=== PATIENT | female | born 1990 | race Caucasian/White ===

== ENCOUNTER → 2017-04-23 | Outpatient (CLI) | payer OTHER ==
[2017-04-23 12:18] LABS: Ionized Calcium 4.9 mg/dL (4.5-5.3)
[2017-04-26 17:56] LABS: Selenium 129 mcg/L (63-160)
== END | disposition home or self-care (01) ==
LOC: LABWHC1 11:23
PROVIDERS: ATTEND Surgery Pediatric Surgery
DX: K92.89 Other specified diseases of the digestive system (principal)
CPT/HCPCS: 36415; 82306; 82330; 82728; 83540; 83970; 84255; 84590

== ENCOUNTER → 2017-11-19 | Outpatient (CLI) | payer BC ==
[2017-11-20 00:31] LABS: Parathyroid Hormone Intact 97.4 pg/mL (14.0-72.0)
[2017-11-20 02:47] LABS: Vitamin D 25 Hydroxy 8.1 ng/mL (30.0-100.0)
[2017-11-20 11:43] LABS: Ceruloplasmin 54.9 mg/dL (20.0-60.0)
[2017-11-21 15:07] LABS: Zinc, Serum 99 ug/dL (60-130)
[2017-11-22 13:07] LABS: Vitamin A 54 ug/dL (38-106)
[2017-11-22 13:08] LABS: Vitamin E (Alpha Tocopherol) 628 ug/dL (500-1800)
[2017-11-24 23:18] LABS: Selenium 124 mcg/L (63-160)
== END | disposition home or self-care (01) ==
LOC: LABWHC1 17:07
PROVIDERS: ATTEND Surgery Pediatric Surgery
DX: K92.89 Other specified diseases of the digestive system (principal); K90.49 Malabsorption due to intolerance, not elsewhere classified; Z78.9 Other specified health status
CPT/HCPCS: 36415; 82306; 82330; 82390; 82525; 83970; 84255; 84446; 84590; 84630

== ENCOUNTER → 2018-02-26 | Outpatient (CLI) | payer BC ==
[2018-02-27 01:56] LABS: Vitamin D 25 Hydroxy 39.3 ng/mL (30.0-100.0)
[2018-02-27 02:28] LABS: Parathyroid Hormone Intact 42.7 pg/mL (14.0-72.0)
[2018-02-27 11:56] LABS: Ceruloplasmin 46.1 mg/dL (20.0-60.0)
[2018-02-28 05:31] LABS: Vitamin A 72 ug/dL (38-106)
== END | disposition home or self-care (01) ==
LOC: LABWHC1 16:17
PROVIDERS: ATTEND Surgery Pediatric Surgery
DX: K91.2 Postsurgical malabsorption, not elsewhere classified (principal); Z78.9 Other specified health status
CPT/HCPCS: 36415; 82306; 82390; 82525; 82728; 83970; 84238; 84590

== ENCOUNTER → 2018-06-07 | Outpatient (CLI) | payer BC ==
[2018-06-08 02:13] LABS: Iron Saturation 23.04 (12.00-45.00)
[2018-06-08 11:16] LABS: Parathyroid Hormone Intact 49.9 pg/mL (14.0-72.0)
[2018-06-08 12:32] LABS: Ceruloplasmin 28.5 mg/dL (20.0-60.0)
[2018-06-10 12:48] LABS: Zinc, Serum 76 ug/dL (60-130)
== END ==
LOC: LABWHC1 16:18
PROVIDERS: ATTEND Surgery Pediatric Surgery
DX: K91.2 Postsurgical malabsorption, not elsewhere classified (principal)
CPT/HCPCS: 36415; 82390; 82525; 82728; 83540; 83550; 83970; 84255; 84446; 84590; 84630; 86140

== ENCOUNTER → 2018-07-13 | Outpatient (CLI) | payer BC ==
[2018-07-13 22:52] LABS: Vitamin D 25 Hydroxy 83.2 ng/mL (30.0-100.0)
== END | disposition home or self-care (01) ==
LOC: LABWHC1 11:23
PROVIDERS: ATTEND Surgery Pediatric Surgery
DX: K92.89 Other specified diseases of the digestive system (principal)
CPT/HCPCS: 36415; 82306; 83970

== ENCOUNTER 2018-09-23 09:29 | Emergency (ER) | payer BC, OTHER ==
[2018-09-23 09:34] VITALS: BP 99/65; PULSE 72; RESP 18; TEMP 98.5
--- NOTE | 2018-09-23 10:01 | ED ---
General Adult HPI - General Chief complaint: Recheck/Abnormal Lab/Rx Stated complaint: positive TB test/needs chest xray Time Seen by Provider: 09/23/18 09:42 Source: patient, RN notes reviewed Mode of arrival: ambulatory Limitations: no limitations - History of Present Illness Initial comments: Patient is a pleasant 28-year-old female presenting to the emergency department with concern for possible positive TB test. Patient had test done through [facility]. Patient states there was questionable results and was advised to come to the emergency department for chest x-ray. Patient denies having any symptoms. Patient denies any recent travel or known exposure. No cough. No fevers. No hemoptysis. - Related Data Home Medications Medication Instructions Recorded Confirmed Cholecalciferol (Vitamin D3) 8,000 unit PO BID 08/14/17 08/14/17 [Vitamin D3] Cipro (Unknown Dose) 1 tab PO DAILY 08/14/17 08/14/17 Diphenox-Atrop 2.5-0.025 mg 1 tab PO QID PRN 08/14/17 08/14/17 [Lomotil] Enskyce 1 tab PO DAILY 08/14/17 08/14/17 Vitamin A 25,000 units PO HS 08/14/17 08/14/17 Vitamin A 50,000 units PO DAILY 08/14/17 08/14/17 Vitamin E (Dl,Tocopheryl Acet) 400 unit PO DAILY 08/14/17 08/14/17 [Vitamin E] Allergies Allergy/AdvReac Type Severity Reaction Status Date / Time Cephalosporins Allergy Nausea Verified 09/23/18 09:57 heparin Allergy Rapid Verified 09/23/18 09:57 Heart Rate latex Allergy Rash/Hives Verified 09/23/18 09:57 Review of Systems ROS Statement: Those systems with pertinent positive or pertinent negative responses have been documented in the HPI. ROS Other: All systems not noted in ROS Statement are negative. Constitutional: Denies: fever, chills, weakness, weight change, night sweats Eyes: Denies: eye pain ENT: Denies: ear pain Respiratory: Denies: cough, dyspnea, hemoptysis Cardiovascular: Denies: chest pain Endocrine: Denies: fatigue Gastrointestinal: Denies: abdominal pain Genitourinary: Denies: dysuria Musculoskeletal: Denies: back pain Skin: Denies: rash Neurological: Denies: weakness Past Medical History Additional Past Medical History / Comment(s): Hurshbrungs disease, illostomy History of Any Multi-Drug Resistant Organisms: None Reported Past Surgical History: Bowel Resection Past Psychological History: No Psychological Hx Reported Smoking Status: Never smoker Past Alcohol Use History: None Reported Past Drug Use History: None Reported General Exam Limitations: no limitations General appearance: alert, in no apparent distress Head exam: Present: atraumatic Eye exam: Present: normal appearance, PERRL ENT exam: Present: normal oropharynx Neck exam: Present: normal inspection Respiratory exam: Present: normal lung sounds bilaterally. Absent: respiratory distress, wheezes, rales, rhonchi, stridor, decreased breath sounds, prolonged expiratory Cardiovascular Exam: Present: regular rate, normal rhythm Extremities exam: Present: other (Bilateral forearms with area of minimal subcutaneous fullness. There is no significant erythema or raised area. There is no definitive border.) Neurological exam: Present: alert Psychiatric exam: Present: normal affect, normal mood Skin exam: Absent: erythema Course Vital Signs 09/23/18 09:31 Temperature 98.5 F Pulse Rate 72 Respiratory 18 Rate Blood Pressure 99/65 O2 Sat by Pulse 99 Oximetry - Reevaluation(s) Reevaluation #1: 09/23/18 10:03 Patient is not clear why they felt that test was positive. Patient would does not to have a chest x-ray. Employee nurse Tiara Triana did also come down and evaluate the site and feels it is negative. Disposition Clinical Impression: Visit for TB skin test Disposition: HOME SELF-CARE Condition: Stable Additional Instructions: TB skin test is read as negative. You may return to work. Please return for fevers, cough, coughing up blood, shortness of breath, worsening or changing symptoms or other concerns. Is patient prescribed a controlled substance at d/c from ED?: No Referrals: Tera Vasquez MD [Primary Care Provider] - 1-2 days Time of Disposition: 10:08
== END 2018-09-23 10:28 | disposition home or self-care (01) ==
LOC: EC 09:29
DX: Z11.1 Encounter for screening for respiratory tuberculosis (principal); Z79.3 Long term (current) use of hormonal contraceptives; Z88.1 Allergy status to other antibiotic agents; Z88.8 Allergy status to other drugs, medicaments and biological substances; Z91.040 Latex allergy status
CPT/HCPCS: 99282

== ENCOUNTER → 2018-11-23 | Outpatient (CLI) | payer OTHER ==
[2018-11-23 16:36] LABS: Iron Saturation 25.66 (12.00-45.00)
== END | disposition home or self-care (01) ==
LOC: LABWHC1 09:17
PROVIDERS: ATTEND Internal Medicine Gastroenterology
DX: D50.8 Other iron deficiency anemias (principal)
CPT/HCPCS: 36415; 83540; 83550

== ENCOUNTER → 2020-04-21 | Outpatient (CLI) | payer BC ==
[2020-04-21 19:33] LABS: % Iron Saturation 14.85 (12.00-45.00); Folate, Serum 19.1 ng/mL
[2020-04-22 14:08] LABS: Zinc, Serum 95 ug/dL (60-130)
[2020-04-23 05:44] LABS: Vitamin A 33 ug/dL (38-106)
== END | disposition home or self-care (01) ==
LOC: LABWHC1 11:23
PROVIDERS: ATTEND Internal Medicine Gastroenterology
DX: K59.8 Other specified functional intestinal disorders (principal)
CPT/HCPCS: 36415; 82180; 82306; 82525; 82607; 82746; 83540; 83550; 84207; 84255; 84590; 84630

== ENCOUNTER → 2020-08-18 | Outpatient (CLI) | payer BC | END | disposition home or self-care (01) | LOC: LABWHC1 16:49 | PROVIDERS: ATTEND Family Medicine | DX: U07.1 COVID-19 (principal) | CPT/HCPCS: U0003; C9803 ==

== ENCOUNTER → 2020-08-20 | Outpatient (CLI) | payer BC ==
[2020-08-21 02:57] LABS: % Iron Saturation 24.74 (12.00-45.00); Ferritin 901.2 ng/mL (10.0-291.0)
== END | disposition home or self-care (01) ==
LOC: LABWHC1 14:30
PROVIDERS: ATTEND Internal Medicine Gastroenterology
DX: D50.9 Iron deficiency anemia, unspecified (principal)
CPT/HCPCS: 36415; 82728; 83540; 83550

== ENCOUNTER → 2020-11-10 | Outpatient (CLI) | payer BC | END | disposition home or self-care (01) | LOC: LABWHC1 13:00 | PROVIDERS: ATTEND Family Medicine | DX: Z20.822 Contact with and (suspected) exposure to COVID-19 (principal) | CPT/HCPCS: U0003; U0005 ==

== ENCOUNTER 2020-11-12 12:25 | Outpatient (CLI) | payer BC ==
--- NOTE | 2020-11-12 12:57 | XR ---
EXAMINATION TYPE: XR chest 2V DATE OF EXAM: 11/12/2020 COMPARISON: Chest x-ray August 22, 1999. HISTORY: Cough and fever. History of Hirschsprung disease. TECHNIQUE: Frontal and lateral views of the chest are obtained. 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 There is no new suspicious focal air space opacity, pleural effusion, or pneumoth orax seen. The cardiac silhouette size remains within normal limits. The osseous structures are in tact. Prominent gas-filled bowel loops in the upper abdomen with air-fluid levels redemonstrated IMPRESSION: No new suspicious acute pulmonary process.
[2020-11-12 15:10] LABS: ALT 357 U/L (4-34); AST 187 U/L (14-36); African American GFR (CKD) >90 (>60 ml/min/1.73 sqM); Albumin/Globulin Ratio 1.1; Alkaline Phosphatase 246 U/L (38-126); Anion Gap 5 mmol/L; Blood Urea Nitrogen 20 mg/dL (7-17); C Reactive Protein 11.9 mg/L (<10.0); Calcium 8.3 mg/dL (8.4-10.2); Carbon Dioxide 32 mmol/L (22-30); Chloride 99 mmol/L (98-107); Globulin 2.7 g/dL; Glucose 98 mg/dL (74-99); Non-African American GFR(CKD) >90 (>60 ml/min/1.73 sqM); Potassium 4.9 mmol/L (3.5-5.1); Sodium 136 mmol/L (137-145); Total Bilirubin 0.4 mg/dL (0.2-1.3); Total Protein 5.7 g/dL (6.3-8.2)
[2020-11-12 15:49] LABS: Cholesterol 106 mg/dL (<200); HDL Cholesterol 13 mg/dL (40-60); LDL Cholesterol,Calculated 72 mg/dL (0-99); Triglycerides 104 mg/dL (<150)
[2020-11-12 16:02] LABS: Basophils % (A) 0 %; Eosinophils # (A) 0.1 k/uL (0-0.7); Eosinophils % (A) 2 %; HCT 34.3 % (34.0-46.0); HGB 11.6 gm/dL (11.4-16.0); Lymphocytes # (A) 0.9 k/uL (1.0-4.8); Lymphocytes % (A) 22 %; MCHC 33.9 g/dL (31.0-37.0); MCV 91.5 fL (80.0-100.0); Mean Platelet Volume 8.5; Monocytes # (A) 0.3 k/uL (0-1.0); Monocytes % (A) 9 %; Neutrophils # (A) 2.6 k/uL (1.3-7.7); Neutrophils % (A) 66 %; Platelet Count 261 k/uL (150-450); RBC 3.75 m/uL (3.80-5.40); RDW 13.2 % (11.5-15.5)
[2020-11-12 16:37] LABS: Erythrocyte Sedimentation Rate 15 mm/hr (0-20)
[2020-11-13 03:40] LABS: Hepatitis C IgG Antibody Non-Reactive (Non-Reactive); Procalcitonin 0.27 ng/mL (0.02-0.09)
== END 2020-11-12 14:20 | disposition home or self-care (01) ==
LOC: LABWHC1 12:25 → PEDOP 14:20
PROVIDERS: ATTEND Nurse Practitioner
DX: R05 Cough (principal); R50.9 Fever, unspecified
CPT/HCPCS: 36415; 71046; 80053; 80061; 84145; 84443; 85025; 85652; 86140; 86803; 87040; 87077; 87186; 99212

== ENCOUNTER 2020-11-13 11:17 | Inpatient (IN) | payer BC ==
[2020-11-13 12:35] LABS: Basophils % (A) 0 %; Eosinophils # (A) 0.1 k/uL (0-0.7); Eosinophils % (A) 2 %; HCT 34.6 % (34.0-46.0); HGB 11.2 gm/dL (11.4-16.0); Lymphocytes % (A) 25 %; MCH 29.7 pg (25.0-35.0); MCHC 32.5 g/dL (31.0-37.0); MCV 91.4 fL (80.0-100.0); Mean Platelet Volume 8.2; Monocytes # (A) 0.3 k/uL (0-1.0); Monocytes % (A) 8 %; Neutrophils # (A) 2.5 k/uL (1.3-7.7); Neutrophils % (A) 61 %; Platelet Count 277 k/uL (150-450); RBC 3.79 m/uL (3.80-5.40); RDW 13.3 % (11.5-15.5)
[2020-11-13 12:44] LABS: ALT 287 U/L (4-34); AST 118 U/L (14-36); African American GFR (CKD) >90 (>60 ml/min/1.73 sqM); Alkaline Phosphatase 224 U/L (38-126); Anion Gap 6 mmol/L; Blood Urea Nitrogen 18 mg/dL (7-17); Calcium 8.1 mg/dL (8.4-10.2); Carbon Dioxide 29 mmol/L (22-30); Chloride 102 mmol/L (98-107); Glucose 96 mg/dL (74-99); Non-African American GFR(CKD) >90 (>60 ml/min/1.73 sqM); Potassium 4.6 mmol/L (3.5-5.1); Sodium 137 mmol/L (137-145); Total Bilirubin 0.4 mg/dL (0.2-1.3); Total Protein 5.7 g/dL (6.3-8.2)
[2020-11-13] MEDS ORDERED: SODIUM CHLORIDE 0.9% 500 ML 500 ML IV ONE (12:53)
[2020-11-13] MEDS ORDERED: SODIUM CHLORIDE 0.9% 1,000 ML IV ONE (12:53)
[2020-11-13] MEDS ORDERED: PIPERACILLIN-TAZOBACTAM 3.375 GM in SODIUM CHLORIDE 0.9% 100 ML IVPB STA (12:53)
--- NOTE | 2020-11-13 13:04 | ED ---
Fever HPI - General Chief Complaint: Fever Stated Complaint: abn labs Time Seen by Provider: 11/13/20 11:32 Source: patient Mode of arrival: ambulatory Limitations: no limitations - History of Present Illness Initial Comments: 22-year-old female presenting for fevers 3-4 days. Patient states the past 3-4 days she has had fevers the unknown of the sore she states she has no cough congestion she's no dysuria or urgency frequency she denies any bowel pain headache and neck stiffness. Patient denies diarrhea or vomiting. Patient states she does have a history of Hirschsprung and has a Broviac in her chest for TPN. Patient states she sees the GI physician at [facility]-DR. Mcpherson. She states that she saw her primary care provider 2 days ago who did blood cultures off the Broviac which returned positive for gram positive cocci. Patient placed on levoquin.Patient told to come to the ER today. Patient has no additional complaints and believes she just needs IV abx, prefers not to be transferred to [facility] if possible. - Related Data Home Medications Medication Instructions Recorded Confirmed Cholecalciferol (Vitamin D3) 10,000 unit PO DAILY 09/23/18 11/13/20 [Vitamin D3] Ciprofloxacin HCl [Cipro] 500 mg PO BID 09/23/18 11/13/20 Levofloxacin [Levaquin] 750 mg PO DAILY 11/13/20 11/13/20 Vitamin A Acetate [Vitamin A] 10,000 unit SL DAILY 11/13/20 11/13/20 Allergies Allergy/AdvReac Type Severity Reaction Status Date / Time Cephalosporins Allergy Nausea Verified 11/13/20 12:17 heparin Allergy Rapid Verified 11/13/20 12:17 Heart Rate latex Allergy Rash/Hives Verified 11/13/20 12:17 Review of Systems ROS Statement: Those systems with pertinent positive or pertinent negative responses have been documented in the HPI. ROS Other: All systems not noted in ROS Statement are negative. Past Medical History Additional Past Medical History / Comment(s): hirschsprung's disease, broviac for supplemental nutrition (2020) History of Any Multi-Drug Resistant Organisms: None Reported Past Surgical History: Bowel Resection Additional Past Surgical History / Comment(s): ileuostomy, Past Psychological History: No Psychological Hx Reported Smoking Status: Never smoker Past Alcohol Use History: None Reported Past Drug Use History: None Reported - Past Family History Father Family Medical History: No Reported History Mother Family Medical History: No Reported History General Exam - General Exam Comments Initial Comments: General: The patient is awake and alert, in no distress Eye: Pupils are equal, round and reactive to light, extra-ocular movements are intact. No nystagmus. There is normal conjunctiva bilaterally. No signs of icterus. Ears, nose, mouth and throat: There are moist mucous membranes and no oral lesions. Neck: The neck is supple, there is no tenderness or JVD. Cardiovascular: There is a regular rate and rhythm. No murmur, rub or gallop is appreciated. Respiratory: Lungs are clear to auscultation, respirations are non-labored, breath sounds are equal. No wheezes, stridor, rales, or rhonchi. Gastrointestinal: Soft, non-distended, non-tender abdomen without masses or organomegaly noted. There is no rebound or guarding present. Musculoskeletal: Normal ROM, no tenderness. Strength 5/5. Sensation intact. Radial pulses equal bilaterally 2+. Neurological: A&O x 3. CN II-XII intact grossly, There are no obvious motor or sensory deficits. Coordination appears grossly intact. Speech is normal. Skin: Skin is warm and dry and no rashes or lesions are noted. Broviac in center of chest, no redness, or drainage appreciated. Psychiatric: Cooperative, appropriate mood & affect, normal judgment. Limitations: no limitations Course Vital Signs 11/13/20 11/13/20 11:24 14:01 Temperature 98.9 F 98.6 F Pulse Rate 88 77 Respiratory 18 18 Rate Blood Pressure 100/6 98/62 O2 Sat by Pulse 100 100 Oximetry Medical Decision Making - Medical Decision Making Anemia noted on laboratory studies. Otherwise labs stable. Previous culture reviewed. Pt initiated on broad spectrum as well as gram + coverage with vancomycin. Patient has had multiple previous broviak infection which she usses the line for nightly feedings secondary to malabsorption secondary to his Hirschsprung disease. Patient prefers admission at this facility. Case discussed [facility] Yuko Gaffney who took over care at end of shift. - Lab Data Result diagrams: 11/14/20 06:24 11/14/20 06:24 Lab Results 03/02/2811/13/20 11/13/20 Range/Units 12:27 12:27 12:27 WBC 4.0 (3.8-10.6) k/uL RBC 3.79 L (3.80-5.40) m/uL Hgb 11.2 L (11.4-16.0) gm/dL Hct 34.6 (34.0-46.0) % MCV 91.4 (80.0-100.0) fL MCH 29.7 (25.0-35.0) pg MCHC 32.5 (31.0-37.0) g/dL RDW 13.3 (11.5-15.5) % Plt Count 277 (150-450) k/uL MPV 8.2 Neutrophils % 61 % Lymphocytes % 25 % Monocytes % 8 % Eosinophils % 2 % Basophils % 0 % Neutrophils # 2.5 (1.3-7.7) k/uL Lymphocytes # 1.0 (1.0-4.8) k/uL Monocytes # 0.3 (0-1.0) k/uL Eosinophils # 0.1 (0-0.7) k/uL Basophils # 0.0 (0-0.2) k/uL Sodium 137 (137-145) mmol/L Potassium 4.6 (3.5-5.1) mmol/L Chloride 102 (98-107) mmol/L Carbon Dioxide 29 (22-30) mmol/L Anion Gap 6 mmol/L BUN 18 H (7-17) mg/dL Creatinine 0.49 L (0.52-1.04) mg/dL Est GFR (CKD-EPI)AfAm >90 (>60 ml/min/1.73 sqM) Est GFR (CKD-EPI)NonAf >90 (>60 ml/min/1.73 sqM) Glucose 96 (74-99) mg/dL Plasma Lactic Acid Mu (0.7-2.0) mmol/L Calcium 8.1 L (8.4-10.2) mg/dL Total Bilirubin 0.4 (0.2-1.3) mg/dL AST 118 H (14-36) U/L ALT 287 H (4-34) U/L Alkaline Phosphatase 224 H (38-126) U/L Total Protein 5.7 L (6.3-8.2) g/dL Albumin 3.0 L (3.5-5.0) g/dL Urine Color Yellow Urine Appearance Clear (Clear) Urine pH 6.0 (5.0-8.0) Ur Specific [place] 1.028 (1.001-1.035) Urine Protein 1+ H (Negative) Urine Glucose (UA) Negative (Negative) Urine Ketones Negative (Negative) Urine Blood Small H (Negative) Urine Nitrite Negative (Negative) Urine Bilirubin Negative (Negative) Urine Urobilinogen <2.0 (<2.0) mg/dL Ur Leukocyte Esterase Negative (Negative) Urine RBC <1 (0-5) /hpf Urine WBC 2 (0-5) /hpf Ur Squamous Epith Cells 1 (0-4) /hpf Urine Bacteria Rare H (None) /hpf Urine Mucus Rare H (None) /hpf Urine HCG, Qual (Not Detectd) Coronavirus (PCR) (Not Detectd) 11/13/20 11/13/20 11/13/20 Range/Units 12:27 12:27 13:35 WBC (3.8-10.6) k/uL RBC (3.80-5.40) m/uL Hgb (11.4-16.0) gm/dL Hct (34.0-46.0) % MCV (80.0-100.0) fL MCH (25.0-35.0) pg MCHC (31.0-37.0) g/dL RDW (11.5-15.5) % Plt Count (150-450) k/uL MPV Neutrophils % % Lymphocytes % % Monocytes % % Eosinophils % % Basophils % % Neutrophils # (1.3-7.7) k/uL Lymphocytes # (1.0-4.8) k/uL Monocytes # (0-1.0) k/uL Eosinophils # (0-0.7) k/uL Basophils # (0-0.2) k/uL Sodium (137-145) mmol/L Potassium (3.5-5.1) mmol/L Chloride (98-107) mmol/L Carbon Dioxide (22-30) mmol/L Anion Gap mmol/L BUN (7-17) mg/dL Creatinine (0.52-1.04) mg/dL Est GFR (CKD-EPI)AfAm (>60 ml/min/1.73 sqM) Est GFR (CKD-EPI)NonAf (>60 ml/min/1.73 sqM) Glucose (74-99) mg/dL Plasma Lactic Acid Mu 0.9 (0.7-2.0) mmol/L Calcium (8.4-10.2) mg/dL Total Bilirubin (0.2-1.3) mg/dL AST (14-36) U/L ALT (4-34) U/L Alkaline Phosphatase (38-126) U/L Total Protein (6.3-8.2) g/dL Albumin (3.5-5.0) g/dL Urine Color Urine Appearance (Clear) Urine pH (5.0-8.0) Ur Specific [place] (1.001-1.035) Urine Protein (Negative) Urine Glucose (UA) (Negative) Urine Ketones (Negative) Urine Blood (Negative) Urine Nitrite (Negative) Urine Bilirubin (Negative) Urine Urobilinogen (<2.0) mg/dL Ur Leukocyte Esterase (Negative) Urine RBC (0-5) /hpf Urine WBC (0-5) /hpf Ur Squamous Epith Cells (0-4) /hpf Urine Bacteria (None) /hpf Urine Mucus (None) /hpf Urine HCG, Qual Not Detected (Not Detectd) Coronavirus (PCR) Not Detected (Not Detectd) Disposition Clinical Impression: FUO (fever of unknown origin), Positive blood culture Disposition: ADMITTED IP TO THIS [facility] Condition: Stable Is patient prescribed a controlled substance at d/c from ED?: No Time of Disposition: 14:03 Decision to Admit Reason: Admit from EC Decision Date: 11/13/20 Decision Time: 14:03
[2020-11-13] MEDS ORDERED: VANCOMYCIN IV PER PHARMACY 1 EACH MISC MISCELLANE PRN (13:59)
[2020-11-13] MEDS ORDERED: NALOXONE 0.4 MG/ML 1 ML VIAL IV PRN (14:00)
[2020-11-13] MEDS ORDERED: VANCOMYCIN 1,000 MG in SODIUM CHLORIDE 0.9% 250 ML IVPB ONE (14:30)
[2020-11-13] MEDS: SODIUM CHLORIDE 0.9% 1,000 ML IV SCH (14:39)
[2020-11-13 14:55] LABS: Appearance,Urine Clear (Clear); Bacteria,Urine Rare /hpf; Bilirubin,Urine Negative (Negative); Blood,Urine Small (Negative); Color,Urine Yellow; Glucose,Urine (UA) Negative (Negative); Ketones,Urine Negative (Negative); Leukocyte Esterase,Urine Negative (Negative); Mucus,Urine Rare /hpf; Nitrite,Urine Negative (Negative); Protein,Urine 1+ (Negative); RBC,Urine <1 /hpf (0-5); Specific Gravity,Urine 1.028 (1.001-1.035); Squamous Epithelial Cell,Urine 1 /hpf (0-4); Urobilinogen,Urine <2.0 mg/dL (<2.0); WBC,Urine 2 /hpf (0-5)
[2020-11-13] MEDS ORDERED: Magnesium Replacement Protocol 1 EACH MISC MISCELLANE PRN (19:11)
[2020-11-13] MEDS ORDERED: Potassium Replacement Protocol 1 EACH MISC MISCELLANE PRN (19:11)
[2020-11-13] MEDS: PIPERACILLIN-TAZOBACTAM 3.375 GM in SODIUM CHLORIDE 0.9% 100 ML IVPB SCH (19:27)
--- NOTE | 2020-11-13 20:43 | HP ---
HISTORY AND PHYSICAL CHIEF COMPLAINT: Fever. HISTORY OF PRESENT ILLNESS: This 30-year-old woman with a past medical history of Hirschsprung's disease with multiple surgeries, history of bowel resection, history of short-gut syndrome, being followed by Dr. Tear Vasquez in the outpatient setting, the patient is also seeing specialist elsewhere in [facility]. The patient had a Broviac catheter since last several years ago. The patient takes supplement nutrition at night in the form of TPN. The patient noted to have fever, rigors and chills for the last few days. The patient initially had a Covid testing that was negative, but repeated test was also negative and the patient was evaluated in the office. The patient had some cultures. Patient empirically treated with antibiotics. The multiple culture reports done on 11/11/2020 is coagulase-negative Staph and one more culture done on November 12, also growing gram-positive cocci. The patient admitted for evaluation and treatment. Infectious disease evaluation also has been sought. There is no history any headache, loss of consciousness, chest pain, palpitation, hematochezia and melena. PAST MEDICAL HISTORY: History of Hirschsprung's disease, Broviac catheter, history of bowel resection, ileostomy. MEDICATIONS: Vitamin A, Levaquin, Cipro, vitamin D3. Doses are reviewed. ALLERGIES: CEPHALOSPORIN, HEPARIN, LATEX. FAMILY HISTORY: No history of heart disease or strokes in the family. SOCIAL HISTORY: History of occasional alcohol. No history of smoking. No substance abuse. REVIEW OF SYSTEMS: ENT: No diminished hearing. No diminished vision. CARDIOVASCULAR system as mentioned earlier. RESPIRATION as mentioned earlier. GI: No nausea. : No dysuria. NERVOUS SYSTEM: No numbness or weakness. ALLERGY/IMMUNOLOGY: No asthma or hayfever. MUSCULOSKELETAL as mentioned earlier. HEMATOLOGY/ONCOLOGY: No history of anemia. ENDOCRINE: No history of diabetes mellitus or hypothyroidism. DERMATOLOGY: Negative. CONSTITUTIONAL: As mentioned earlier. RHEUMATOLOGY: Negative. PSYCHIATRY as mentioned earlier. PHYSICAL EXAMINATION: Alert and oriented times three. Pulse 71, blood pressure 92/59, respiration 18, temperature 98.2, pulse ox 97% on room air. HEENT: Conjunctivae normal. Oral mucosa moist. NECK is no jugular venous distention. No carotid bruit. No lymph node enlargement. CARDIOVASCULAR system: S1, S2. No S3, no S4. RESPIRATORY: Breath sounds diminished in the bases. No rhonchi. No crackles. ABDOMEN: Soft, nontender. Ileostomy. LEGS: No edema. No swelling. NERVOUS SYSTEM: No focal deficits. LABS: WBC 4, hemoglobin 11.2. Otherwise AST is 118, ALT is 287, alkaline phosphatase is 224. ASSESSMENT: 1. Possible sepsis with coagulase-negative Staph. 2. Status post Broviac catheter. 3. Hirschsprung's disease history. 4. On TPN. 5. History of bowel resection. 6. History of ileostomy. 7. Anemia, normocytic anemia of chronic disease. 8. Increased AST/ALT and alkaline phosphatase. 9. Hypoalbuminemia with mild protein calorie malnutrition. RECOMMENDATIONS AND DISCUSSION: In this 30-year-old woman who presented with multiple complex medical issues, we will monitor the patient closely, continue the current medications, management and symptomatic treatment. We will initiate broad-spectrum IV antibiotics. Obtain repeat cultures. Infectious disease evaluation. Also recommend repeat LFTs and also ultrasound of the abdomen. Prognosis guarded because of multiple complex medical issues. A copy of dictation being forwarded to Dr. Tera Vasquez who is the primary physician. MMODL / IJN: [id number] /
[2020-11-13 20:44] LABS: D-Dimer 0.66 mg/L FEU (<0.60); INR 1.1 (<1.2); Prothrombin Time 11.7 sec (9.0-12.0)
[2020-11-13 21:30] LABS: LDH 1105 U/L (313-618)
[2020-11-13 21:57] LABS: C Reactive Protein <5.0 mg/L (<10.0)
[2020-11-14] MEDS: VANCOMYCIN 1,000 MG in SODIUM CHLORIDE 0.9% 250 ML IVPB SCH ×3 (00:15→16:00)
[2020-11-14] MEDS: PIPERACILLIN-TAZOBACTAM 3.375 GM in SODIUM CHLORIDE 0.9% 100 ML IVPB SCH ×2 (01:37→10:00)
[2020-11-14] MEDS: SODIUM CHLORIDE 0.9% 1,000 ML IV SCH ×4 (01:38→15:58)
[2020-11-14 06:41] LABS: Basophils % (A) 1 %; Eosinophils # (A) 0.1 k/uL (0-0.7); Eosinophils % (A) 4 %; HCT 32.6 % (34.0-46.0); HGB 10.5 gm/dL (11.4-16.0); Lymphocytes # (A) 0.6 k/uL (1.0-4.8); Lymphocytes % (A) 16 %; MCH 29.9 pg (25.0-35.0); MCHC 32.2 g/dL (31.0-37.0); MCV 92.9 fL (80.0-100.0); Mean Platelet Volume 8.5; Monocytes # (A) 0.4 k/uL (0-1.0); Monocytes % (A) 10 %; Neutrophils # (A) 2.6 k/uL (1.3-7.7); Neutrophils % (A) 67 %; Platelet Count 246 k/uL (150-450); RBC 3.51 m/uL (3.80-5.40); RDW 13.3 % (11.5-15.5); WBC 3.9 k/uL (3.8-10.6)
[2020-11-14 07:05] LABS: ALT 246 U/L (4-34); AST 127 U/L (14-36); African American GFR (CKD) >90 (>60 ml/min/1.73 sqM); Albumin 2.5 g/dL (3.5-5.0); Alkaline Phosphatase 204 U/L (38-126); Anion Gap 1 mmol/L; Blood Urea Nitrogen 14 mg/dL (7-17); Calcium 7.9 mg/dL (8.4-10.2); Carbon Dioxide 32 mmol/L (22-30); Chloride 107 mmol/L (98-107); Glucose 92 mg/dL (74-99); Magnesium 1.9 mg/dL (1.6-2.3); Non-African American GFR(CKD) >90 (>60 ml/min/1.73 sqM); Potassium 3.7 mmol/L (3.5-5.1); Sodium 140 mmol/L (137-145); Total Bilirubin 0.4 mg/dL (0.2-1.3)
[2020-11-14] MEDS ORDERED: POTASSIUM CHLORIDE ER 20 MEQ TAB.ER PO STA (07:40)
--- NOTE | 2020-11-14 08:50 | US ---
EXAMINATION TYPE: US gallbladder DATE OF EXAM: 11/14/2020 COMPARISON: NONE CLINICAL HISTORY: high lft. . Patient has Hirschsprung's disease. Patient has a Broviac central line. EXAM MEASUREMENTS: Liver Length: 14.6 cm Gallbladder Wall: 0.4 cm CBD: 0.3 cm Right Kidney: 9.6 x 4.8 x 5.6 cm Patient has had extensive surgical history. Exam is technically difficult due to extensive midline isabella wel gas and swirling debris presumed to be from supplemental nutrition through Broviac. Pancreas: Obscured by bowel gas Liver: Liver echotexture is somewhat coarse, no evident mass Gallbladder: appears contracted, no stones seen. Only seen when patient is supine due to extensive s wirling noted midline. Evidence for sonographic Guerrero's sign: No CBD: wnl Right Kidney: No hydronephrosis or masses seen No evident ascites. IMPRESSION: Exam is limited. There may be underlying hepatic steatosis, hepatocellular disease. Contr acted gallbladder.
[2020-11-14] MEDS: VITAMIN A 10,000 UNIT CAPSULE PO SCH (08:59)
[2020-11-14] MEDS: MAGNESIUM SULFATE-D5W PMX 1 GM in DEXTROSE/WATER 1 100ML.BAG IVPB SCH ×2 (09:10→10:26)
[2020-11-14 09:54] LABS: Ferritin 1221.8 ng/mL (10.0-291.0)
[2020-11-14] MEDS: CHOLECALCIFEROL 25 MCG (1000 IU) TABLET PO SCH (09:56)
[2020-11-14] MEDS ORDERED: PANTOPRAZOLE 40 MG TABLET PO SCH (11:00)
--- NOTE | 2020-11-14 15:34 | XR ---
EXAMINATION TYPE: XR chest 1V portable DATE OF EXAM: 11/14/2020 COMPARISON: Prior chest x-ray dated 11/12/2020 HISTORY: Infection, congestive heart failure, abnormal chest x-ray TECHNIQUE: Single frontal view of the chest is obtained. FINDINGS: The catheter tubing is seen overlying the patient extending to the level of the cavoatrial junction, looped over the heart abdomen. Gas distended loops of bowel present within the abdomen. Th ere is no evident pneumothorax or pleural effusion. Cardiac mediastinal silhouette is stable. No evid ent airspace disease. IMPRESSION: Stable catheter placement. Findings in the abdomen are similar to prior exam.
--- NOTE | 2020-11-14 16:13 | CT ---
EXAMINATION TYPE: CT angio chest DATE OF EXAM: 11/14/2020 3:52 PM COMPARISON: None HISTORY: Shortness of breath CT DLP: EXAMINATION TYPE: CT angio chest DATE OF EXAM: 11/14/2020 COMPARISON: HISTORY: Shortness of breath Automated exposure control for dose reduction was used. CONTRAST: CT Chest for pulmonary embolism performed following the uneventful administration of nonionic IV cont rast. FINDINGS: LUNGS: The lungs are grossly clear, there is no concerning parenchymal mass or nodule identified. T here is no pleural effusion or pneumothorax seen. The tracheobronchial tree is patent. MEDIASTINUM: There is satisfactory enhancement of the pulmonary artery and its branches, there is no CT evidence for pulmonary embolism. There are no greater than 1 cm hilar or mediastinal lymph nodes. No pericardial effusion is seen. Limited scanning of the upper abdomen reveals markedly distended loops of bowel with air-fluid levels in the large cystic mass measuring 8.8 cm which could be arising from the left adrenal gland or tail of the pancreas.CT of the abdomen and pelvis is recommended for further evaluation IMPRESSION: No evidence of pulmonary embolism. No acute cardiopulmonary disease. CT of the abdomen and pelvis is recommended for further evaluation.
--- NOTE | 2020-11-14 16:43 | PN ---
PROGRESS NOTE DATE OF SERVICE: 11/14/2020 INTERVAL HISTORY: This 30-year-old woman was admitted with fever and possible line sepsis is being closely monitored. The most recent cultures are negative at this time. The patient has a Broviac catheter for several years for nighttime supplemental feeding at this time. The LFTs are also elevated. Gallbladder ultrasound done today showed limited disease and contracted gallbladder. PAST MEDICAL HISTORY: Reviewed. REVIEW OF SYSTEMS: CARDIOVASCULAR: No angina. RESPIRATORY: As mentioned earlier. GI: As mentioned earlier. : No dysuria. NERVOUS SYSTEM: No numbness or weakness. CURRENT MEDICATIONS: Reviewed and include vitamin D, magnesium, potassium, vancomycin, Narcan. Protonix. Doses reviewed. PHYSICAL EXAM: GENERAL: Patient is alert and oriented times three. VITAL SIGNS: Pulse 88, blood pressure 108/64, respirations 18, temperature 97.8, pulse ox 100% on room air. HEENT: Conjunctivae normal. Oral mucosa moist. NECK: No jugular venous distention. No carotid bruits. No lymph node enlargement. RESPIRATORY: Breath sounds diminished at the bases. No rhonchi, no crackles. Broviac catheter , no tenderness. HEART: S1 and S2, muffled. ABDOMEN: Soft, no tenderness. No masses palpable. EXTREMITIES: No edema, no swelling. NERVOUS: No focal deficits. LABS: WBC 3.2, hemoglobin 10.5, D-dimer is 0.66. The ferritin is 1221 and AST is 127, ALT is 246 and procalcitonin 0.16. COVID-19 is negative. ASSESSMENT: 1. Possible sepsis with coagulase-negative Staph. 2. Status post Broviac catheter. 3. Elevated D-dimer. 4. Hirschsprung's disease history. 5. On TPN. 6. History of bowel resection. 7. History of ileostomy. 8. Anemia, normocytic anemia of chronic disease. 9. Increased AST, ALT, alkaline phosphatase. 10.Hypoalbuminemia with mild protein calorie malnutrition. RECOMMENDATIONS AND DISCUSSION: I recommend to continue current medications, continue symptomatic treatment. Otherwise, I would also recommend a CT angio of the chest because of the elevated D- dimer and chest x-ray also will be obtained. Otherwise, closely follow with multiple consultants. Being followed closely with Dr. Charles. Guarded prognosis. Further recommendations to follow. MMODL / IJN: [id number] / HERACLIO
[2020-11-14] MEDS: PANTOPRAZOLE 40 MG TABLET PO SCH (20:15)
[2020-11-15] MEDS: VANCOMYCIN 1,000 MG in SODIUM CHLORIDE 0.9% 250 ML IVPB SCH ×2 (00:48→08:00)
[2020-11-15] MEDS ORDERED: VANCOMYCIN TROUGH DUE 1 EACH MISC MISCELLANE ONE ×2 (07:00→14:00)
[2020-11-15 07:41] LABS: Basophils % (A) 1 %; Eosinophils # (A) 0.2 k/uL (0-0.7); Eosinophils % (A) 3 %; HGB 10.3 gm/dL (11.4-16.0); Lymphocytes # (A) 0.8 k/uL (1.0-4.8); Lymphocytes % (A) 16 %; MCH 30.1 pg (25.0-35.0); MCHC 32.2 g/dL (31.0-37.0); MCV 93.5 fL (80.0-100.0); Mean Platelet Volume 8.3; Monocytes # (A) 0.4 k/uL (0-1.0); Monocytes % (A) 8 %; Neutrophils # (A) 3.4 k/uL (1.3-7.7); Neutrophils % (A) 70 %; Platelet Count 195 k/uL (150-450); RBC 3.42 m/uL (3.80-5.40); RDW 13.3 % (11.5-15.5); WBC 4.9 k/uL (3.8-10.6)
[2020-11-15] MEDS ORDERED: VANCOMYCIN IV PER PHARMACY 1 EACH MISC MISCELLANE PRN (08:25)
[2020-11-15 08:29] LABS: Albumin 2.5 g/dL (3.5-5.0); Potassium 4.2 mmol/L (3.5-5.1); Total Bilirubin 0.5 mg/dL (0.2-1.3)
[2020-11-15 08:32] VITALS: RESP 16
[2020-11-15] MEDS: PANTOPRAZOLE 40 MG TABLET PO SCH (08:47)
[2020-11-15] MEDS: VITAMIN A 10,000 UNIT CAPSULE PO SCH (08:47)
[2020-11-15] MEDS: CHOLECALCIFEROL 25 MCG (1000 IU) TABLET PO SCH (08:47)
--- NOTE | 2020-11-15 09:00 | CONS ---
CONSULTATION DATE OF SERVICE: 11/14/2020 REASON FOR CONSULTATION: Bacteremia. HISTORY OF PRESENT ILLNESS: The patient is a 30-year-old female with a past medical history significant for Hirschsprung disease in this patient who did have Broviac in her left chest for TPN which the patient uses every night. The patient did have her current IV access for more than 10 years now and did have one episode of infection that relates to the line that was successfully treated with antibiotic therapy and did not need removal of the central line. Patient presented to the hospital yesterday for evaluation of fever that had been going on for the last 3-4 days. The patient denies having any headache or URI symptoms. Denies having any chest pain, shortness of breath or cough. No nausea, no vomiting. No abdominal pain, no diarrhea and no urinary symptoms. On presentation to the hospital, the patient has been afebrile. The patient did have a normal white count with no left shift. Kidney function was normal. Liver enzymes were elevated. CRP was less than 5. Urine was negative. Zayas PCR was negative. The patient did have blood cultures done, which are so far negative. However, she recently did have blood cultures done on the , which shows Coagulase-negative Staph. The patient did have a CT angiogram of the chest that was negative for . Ultrasound of the gallbladder was suggestive of contracted gallbladder. She is currently being treated with vancomycin and Zosyn. Infectious Disease is consulted for further management of antibiotic therapy especially with her bacteremia. REVIEW OF SYSTEMS: Positive points have been mentioned in HPI. Rest of the systems are negative. PAST MEDICAL HISTORY: Hirschsprung disease, history of line infection. PAST SURGERY HISTORY: Bowel resection, ileostomy and Broviac for . SOCIAL HISTORY: Patient denies smoking, drinking or drug use. FAMILY HISTORY: No pertinent findings noticed. ALLERGIES: Allergies to CEPHALOSPORIN, HEPARIN, LATEX. MEDICATIONS: Medications include the patient is currently on vancomycin, pharmacy to dose. She is on Zosyn, IV fluid, Protonix, Narcan, Magnesium, vitamin D3. PHYSICAL EXAMINATION: Blood pressure 99/66, pulse 85, temperature 98.6. She is 99% on room air. General description is a middle-aged female up in the bed in no distress. HEENT: Examination shows slight pallor. No scleral icterus. Oral mucous membrane is dry. NECK: Trachea central. No thyromegaly. LUNGS: Unlabored breathing, decreased breath sounds at the bases. No wheeze or crackle. HEART: S1, S2. Regular rate and rhythm. ABDOMEN: Soft, no tenderness. No guarding or rigidity. EXTREMITIES: No edema of feet. SKIN EXAMINATION: No rash or mass palpable. The IV site currently with no swelling, no redness, no drainage. NEUROLOGICAL: Patient is awake, alert, oriented x3. Mood and affect normal. LABS: Hemoglobin is 10.5, white count 3.9, BUN of 14, creatinine 0.67. Liver enzymes are elevated. DIAGNOSTIC IMPRESSION: Patient admitted to the hospital with fever and did have a positive blood cultures could be related to the Broviac line she has for the TPN as currently no other obvious focus of infection. CT angiogram was negative for any pneumonia. Abdomen had been soft on clinical examination. No evidence of any cellulitis. PLAN: We will keep the patient on vancomycin pharmacy to dose for a total of 10 days for possible to the line and no evidence of any other gram-negative infection Zosyn will be discontinued. Thank you for this consultation. Will follow this patient along with you. MMODL / IJN: [id number] /
[2020-11-15] MEDS: SODIUM CHLORIDE 0.9% 1,000 ML IV SCH (12:57)
[2020-11-15 13:37] VITALS: BMI 20.1
[2020-11-15 15:10] VITALS: BP 102/61; PULSE 83; TEMP 98
--- NOTE | 2020-11-15 18:28 | PN ---
PROGRESS NOTE DATE OF SERVICE: 11/15/2020 REASON FOR FOLLOWUP: Staph epi bacteremia possibly due to port infection. INTERVAL HISTORY: The patient is seen on rounds this morning. The patient has been afebrile. She is breathing comfortably. Denies having any chest pain, shortness of breath or cough. No abdominal pain. No diarrhea. PHYSICAL EXAMINATION: Her blood pressure is 102/61, pulse 83, temperature 98. She is 96% on room air. General description is a middle-aged female up in the room in no distress. Respiratory system: Unlabored breathing, clear to auscultation anteriorly. Heart S1, S2. Regular rate and rhythm. ABDOMEN: Soft, no tenderness. LABS: No new labs have been obtained today. Blood culture has been negative. DIAGNOSTIC IMPRESSION AND PLAN: Patient with a fever with a positive blood culture with Staph epi, possibly related to her port and the patient now. Follow-up blood culture negative. Patient is responding to vancomycin to continue for another 12 days to finish a 2 week course of therapy and close outpatient followup. MMODL / IJN: [id number] /
--- NOTE | 2020-11-15 22:11 | DS ---
DISCHARGE SUMMARY DATE OF SERVICE: 11/15/2020 FINAL DIAGNOSES: 1. Sepsis with coagulase negative Staph with possibly from line infection. 2. Status post Broviac catheter. 3. Elevated D-dimer. 4. Hirschsprung's disease history. 5. On supplemental TPN. 6. History of bowel resection. 7. History of ileostomy. 8. Anemia, normocytic anemia of chronic disease. 9. Increased AST, ALT, alkaline phosphatase. 10.Hypoalbuminemia with mild protein calorie malnutrition. DISCHARGE DISPOSITION: The patient being discharged in stable condition with guarded prognosis. Total time taken: 35 minutes. HISTORY OF PRESENT ILLNESS: This 30 -year-old woman with a past medical history with multiple medical problems admitted with staph coagulase-negative Staph infection and sepsis. The line infection was suspected. The patient started on vancomycin. The patient had previous history of line infections. Dr. Charles saw the patient. LFTs have improved and AST 94 and ALT is 195. Recommend close outpatient followup. On exam, vitals are stable. CARDIOVASCULAR: S1, S2. Abdomen soft. Nervous system: No focal deficits. DISCHARGE ADVICE AND MEDICATIONS: 1. Discharge diet is cardiac diet. 2. Activity limited until followup. 3. Follow up with Dr. Tera Vasquez in 1-2 days. 4. Follow up with Dr. Charles as recommended. 5. Vitamin A as before. 6. Vitamin D3. 7. Protonix 40 mg daily. 8. Vancomycin 1 g IV daily. Dose to be adjusted in the outpatient setting. MMODL / IJN: [id number] /
== END 2020-11-15 16:04 | disposition home or self-care (01) | DRG 314 ==
LOC: EC 11:17 → 6PED 14:00
PROVIDERS: ADMIT Family Medicine; ATTEND Family Medicine
DX: T80.211A Bloodstream infection due to central venous catheter, initial encounter (principal); A41.1 Sepsis due to other specified staphylococcus; Q43.1 Hirschsprung's disease; E44.1 Mild protein-calorie malnutrition; D63.8 Anemia in other chronic diseases classified elsewhere; E88.09 Other disorders of plasma-protein metabolism, not elsewhere classified; Z20.822 Contact with and (suspected) exposure to COVID-19; Z90.49 Acquired absence of other specified parts of digestive tract; Z93.2 Ileostomy status; Z88.8 Allergy status to other drugs, medicaments and biological substances; Z88.1 Allergy status to other antibiotic agents; Z91.040 Latex allergy status; Z79.899 Other long term (current) drug therapy; Z79.2 Long term (current) use of antibiotics; Z68.20 Body mass index [BMI] 20.0-20.9, adult
CPT/HCPCS: 36415; 71045; 71275; 76705; 80053; 80202; 81001; 81025; 82728; 83605; 83615; 83735; 84145; 85025; 85379; 85610; 85652; 86140; 87040; 87635; 96365; 99285

== ENCOUNTER → 2020-11-17 | Outpatient (CLI) | payer BC ==
[2020-11-18 12:19] LABS: African American GFR (CKD) 88.8 (60.0-200.0); Albumin 3.6 g/dL (3.80-4.90); Albumin/Globulin Ratio 1.64 (1.60-3.17); Anion Gap 11.1 mmol/L (4.00-12.00); Calcium 8.4 mg/dL (8.7-10.3); Carbon Dioxide 21.9 mmol/L (21.6-31.8); Globulin 2.2 g/dL (1.6-3.3); Non-African American GFR(CKD) 76.6 (60.0-200.0); Potassium 4.5 mmol/L (3.5-5.5); Total Bilirubin 0.3 mg/dL (0.2-1.2); Total Protein 5.8 g/dL (6.2-8.2)
== END | disposition home or self-care (01) ==
LOC: LABWHC1 16:12
PROVIDERS: ATTEND Nurse Practitioner
DX: R50.9 Fever, unspecified (principal); T80.211A Bloodstream infection due to central venous catheter, initial encounter
CPT/HCPCS: 36415; 80053; 80202

== ENCOUNTER → 2020-11-22 | Outpatient (CLI) | payer BC | END | disposition home or self-care (01) | LOC: LABWHC1 15:55 | PROVIDERS: ATTEND Nurse Practitioner | DX: T80.211A Bloodstream infection due to central venous catheter, initial encounter (principal) | CPT/HCPCS: 36415; 80202; 85652; 86140 ==

== ENCOUNTER → 2021-06-02 | Outpatient (CLI) | payer BC ==
[~2021-06-02] MED LIST: ALTEPLASE 2 MG VIAL (CATHFLO) IV STA; SODIUM CHLORIDE 0.9% 500 ML 500 ML in EMPTY BAG 1 BAG IV PRN
[2021-06-02 11:21] VITALS: BP 94/64; PULSE 85; RESP 16; TEMP 98.1
== END ==
LOC: PROCWHC3 11:10
PROVIDERS: ATTEND Internal Medicine Gastroenterology
DX: K59.89 Other specified functional intestinal disorders (principal); Z78.9 Other specified health status
CPT/HCPCS: 96374; 36593; J2997

== ENCOUNTER → 2021-06-03 | Outpatient (CLI) | payer BC | LOC: LABWHC1 14:20 | PROVIDERS: ATTEND Family Medicine | DX: Z20.822 Contact with and (suspected) exposure to COVID-19 (principal); B34.9 Viral infection, unspecified | CPT/HCPCS: 87502; U0003; C9803; U0005 ==

== ENCOUNTER → 2021-12-30 | Outpatient (CLI) | payer BC ==
[2021-12-30 16:39] LABS: Basophils % (A) 1 %; Eosinophils # (A) 0.3 k/uL (0-0.7); Eosinophils % (A) 6 %; HCT 42.2 % (34.0-46.0); HGB 13.1 gm/dL (11.4-16.0); Lymphocytes # (A) 0.9 k/uL (1.0-4.8); Lymphocytes % (A) 18 %; MCH 28.7 pg (25.0-35.0); MCHC 31.2 g/dL (31.0-37.0); MCV 92.1 fL (80.0-100.0); Monocytes # (A) 0.3 k/uL (0-1.0); Monocytes % (A) 5 %; Neutrophils # (A) 3.7 k/uL (1.3-7.7); Neutrophils % (A) 70 %; Platelet Count 224 k/uL (150-450); RBC 4.58 m/uL (3.80-5.40); RDW 12.2 % (11.5-15.5); WBC 5.3 k/uL (3.8-10.6)
[2021-12-30 16:44] LABS: ALT 32 U/L (4-34); AST 34 U/L (14-36); African American GFR (CKD) >90 (>60 ml/min/1.73 sqM); Albumin 3.6 g/dL (3.5-5.0); Albumin/Globulin Ratio 1.1; Alkaline Phosphatase 171 U/L (38-126); Anion Gap 8 mmol/L; Bilirubin,Unconjugated 0.3 mg/dL (0.0-1.1); Blood Urea Nitrogen 27 mg/dL (7-17); Calcium 9.1 mg/dL (8.4-10.2); Carbon Dioxide 24 mmol/L (22-30); Chloride 106 mmol/L (98-107); Globulin 3.2 g/dL; Glucose 91 mg/dL (74-99); Magnesium 2.1 mg/dL (1.6-2.3); Non-African American GFR(CKD) >90 (>60 ml/min/1.73 sqM); Phosphorus 5.2 mg/dL (2.5-4.5); Potassium 4.5 mmol/L (3.5-5.1); Sodium 138 mmol/L (137-145); Total Bilirubin 0.5 mg/dL (0.2-1.3); Total Protein 6.8 g/dL (6.3-8.2)
[2021-12-30 23:29] LABS: INR 0.98 (0.90-1.11); Prothrombin Time 11.1 sec (9.9-11.9)
[2021-12-31 01:57] LABS: Prealbumin 17.1 mg/dL (18.0-42.0)
== END | disposition home or self-care (01) ==
LOC: LABWHC1 15:54
PROVIDERS: ATTEND Internal Medicine Gastroenterology
DX: K91.2 Postsurgical malabsorption, not elsewhere classified (principal); Z78.9 Other specified health status; R31.0 Gross hematuria
CPT/HCPCS: 36415; 80053; 82248; 82465; 83735; 84100; 84134; 84478; 85025; 85610; 87086

== ENCOUNTER 2022-02-02 12:11 | Inpatient (IN) | payer BC ==
--- NOTE | 2022-02-02 21:42 | ED ---
General Adult HPI - General Chief complaint: Recheck/Abnormal Lab/Rx Stated complaint: Infection Time Seen by Provider: 02/02/22 21:11 Source: patient Mode of arrival: ambulatory - History of Present Illness Initial comments: This patient is a 31-year-old woman who presents with the report that she received a call about having positive blood cultures. She states that her physi cam had taken blood cultures from the office yesterday, after she had experienced chills following TPN infusion with her Broviac catheter. Today she received a call that the culture had a positive result. The patient states that she is not currently having any symptoms. No fever or chills. No palpitations, dyspnea, chest pain, cough or other symptoms. She states that back in November she had infection related to the Broviac catheter and she was able to be treated with vancomycin. She states that there is visiting nurse set up to perform the infusions but she needs a prescription for the medication. Onset/Timin -: days(s) Severity scale (1-10): 0 Consistency: now resolved Improves with: none Worsens with: none Associated Symptoms: denies other symptoms, fever/chills Treatments Prior to Arrival: none - Related Data Home Medications Medication Instructions Recorded Confirmed Cholecalciferol (Vitamin D3) 10,000 unit PO DAILY 09/23/18 02/02/22 [Vitamin D3] Amoxicillin/Potassium Clav 1 tab PO DIRECTED 02/02/22 02/02/22 [Augmentin 250-125] Ascorbic Acid [Vitamin C] 1,000 mg PO DAILY 02/02/22 02/02/22 Ciprofloxacin HCl [Cipro] 500 mg PO DIRECTED 02/02/22 02/02/22 Allergies Allergy/AdvReac Type Severity Reaction Status Date / Time Cephalosporins Allergy Nausea Verified 02/02/22 22:48 heparin Allergy Rapid Verified 02/02/22 22:48 Heart Rate latex Allergy Rash/Hives Verified 02/02/22 22:48 Review of Systems ROS Statement: Those systems with pertinent positive or pertinent negative responses have been documented in the HPI. ROS Other: All systems not noted in ROS Statement are negative. Constitutional: Reports: chills. Denies: fever Respiratory: Denies: cough, dyspnea Cardiovascular: Denies: chest pain, palpitations, edema Past Medical History Additional Past Medical History / Comment(s): hirschsprung's disease, broviac for supplemental nutrition (2020) History of Any Multi-Drug Resistant Organisms: None Reported Past Surgical History: Bowel Resection Additional Past Surgical History / Comment(s): ileuostomy, Additional Past Anesthesia/Blood Transfusion Reaction / Comment(s): no hx for pt or in family Past Psychological History: No Psychological Hx Reported Smoking Status: Never smoker Past Alcohol Use History: None Reported Past Drug Use History: None Reported - Past Family History Father Family Medical History: No Reported History Mother Family Medical History: No Reported History General Exam General appearance: alert, in no apparent distress Head exam: Present: atraumatic, normocephalic Eye exam: Present: normal appearance. Absent: scleral icterus, conjunctival injection ENT exam: Present: normal oropharynx Neck exam: Present: normal inspection Respiratory exam: Present: normal lung sounds bilaterally. Absent: respiratory distress, wheezes, rales, rhonchi, stridor Cardiovascular Exam: Present: regular rate, normal rhythm, normal heart sounds, other (Patient's broviac insertion site appears normal, no erythema or drainage. No tenderness). Absent: systolic murmur, diastolic murmur, rubs, gallop GI/Abdominal exam: Present: soft. Absent: distended, tenderness, guarding, rebound, rigid, mass Extremities exam: Present: normal inspection, normal capillary refill. Absent: pedal edema, calf tenderness Back exam: Present: normal inspection. Absent: CVA tenderness (R), CVA tenderness (L) Neurological exam: Present: alert Skin exam: Present: warm, dry, intact, normal color. Absent: rash Course Scott discussed with Dr. Chalres, infectious disease, who does recommend patient be admitted to establish the final culture result and sensitivity and ensure that there is adequate coverage of this infection. Discussed with patient and her family. Medical Decision Making - Medical Decision Making Review of the record reveals that the patient did indeed have what appears to be micrococcus identified from blood culture in early November, that was treated with vancomycin. She had consultation with Dr. Charles at that time and appears to have had successful treatment. I discussed the case with Dr. Lucia who is covering for infectious disease. Patient be admitted for IV antibiotics and pending the results of blood culture and sensitivity. - Lab Data Result diagrams: 02/02/22 22:17 02/02/22 22:17 Disposition Clinical Impression: Positive blood culture Disposition: ADMITTED IP TO THIS HOSP Condition: Fair Is patient prescribed a controlled substance at d/c from ED?: No
[2022-02-02] MEDS ORDERED: ACETAMINOPHEN TAB 325 MG TAB PO PRN (21:53)
[2022-02-02] MEDS ORDERED: NALOXONE 0.4 MG/ML 1 ML VIAL IV PRN (21:53)
[2022-02-02] MEDS ORDERED: PIPERACILLIN-TAZOBACTAM 3.375 GM in SODIUM CHLORIDE 0.9% 100 ML IVPB STA (21:56)
[2022-02-02] MEDS ORDERED: VANCOMYCIN IV PER PHARMACY 1 EACH MISC MISCELLANE PRN (21:58)
[2022-02-02] MEDS ORDERED: PIPERACILLIN-TAZOBACTAM 3.375 GM in SODIUM CHLORIDE 0.9% 100 ML IVPB ONE (22:06)
[2022-02-02] MEDS: SODIUM CHLORIDE 0.9% 1,000 ML IV SCH (22:30)
[2022-02-02 22:33] LABS: HCT 34.3 % (34.0-46.0); HGB 10.7 gm/dL (11.4-16.0); MCH 27.8 pg (25.0-35.0); MCHC 31.1 g/dL (31.0-37.0); MCV 89.1 fL (80.0-100.0); Mean Platelet Volume 9.1; Platelet Count 160 k/uL (150-450); RBC 3.85 m/uL (3.80-5.40); RDW 11.9 % (11.5-15.5); WBC 3.9 k/uL (3.8-10.6)
[2022-02-02 22:44] LABS: ALT 75 U/L (4-34); AST 67 U/L (14-36); African American GFR (CKD) >90 (>60 ml/min/1.73 sqM); Albumin 3.1 g/dL (3.5-5.0); Alkaline Phosphatase 169 U/L (38-126); Anion Gap 7 mmol/L; Blood Urea Nitrogen 31 mg/dL (7-17); Calcium 8.6 mg/dL (8.4-10.2); Carbon Dioxide 25 mmol/L (22-30); Chloride 104 mmol/L (98-107); Glucose 85 mg/dL (74-99); Non-African American GFR(CKD) 80 (>60 ml/min/1.73 sqM); Potassium 3.5 mmol/L (3.5-5.1); Sodium 136 mmol/L (137-145); Total Bilirubin 0.3 mg/dL (0.2-1.3); Total Protein 5.8 g/dL (6.3-8.2)
[2022-02-02] MEDS ORDERED: VANCOMYCIN 1,250 MG in SODIUM CHLORIDE 0.9% 250 ML IVPB ONE (23:00)
[2022-02-03 00:43] LABS: Band Neutrophils % 5 %; Basophils # (M) 0.04 k/uL (0-0.2); Lymphocytes # (M) 1.72 k/uL (1.0-4.8); Monocytes # (M) 0.27 k/uL (0-1.0); Neutrophils % (M) 38 %; Nucleated Red Blood Cells 0 /100 WBC (0-0); Total Cells Counted 100
[2022-02-03 03:54] LABS: Appearance,Urine Cloudy (Clear); Bacteria,Urine Occasional /hpf; Bilirubin,Urine Negative (Negative); Blood,Urine Large (Negative); Color,Urine Yellow; Glucose,Urine (UA) Negative (Negative); Hyaline Casts,Urine 6 /lpf (0-2); Ketones,Urine Negative (Negative); Leukocyte Esterase,Urine Moderate (Negative); Mucus,Urine Rare /hpf; Nitrite,Urine Negative (Negative); Protein,Urine 2+ (Negative); RBC,Urine >182 /hpf (0-5); Specific Gravity,Urine 1.014 (1.001-1.035); Squamous Epithelial Cell,Urine <1 /hpf (0-4); Urobilinogen,Urine <2.0 mg/dL (<2.0); WBC,Urine 30 /hpf (0-5)
[2022-02-03] MEDS ORDERED: PIPERACILLIN-TAZOBACTAM 3.375 GM in SODIUM CHLORIDE 0.9% 100 ML IVPB SCH (06:00)
[2022-02-03] MEDS: CHOLECALCIFEROL 125 MCG (5000 IU) TABLET PO SCH (07:47)
[2022-02-03] MEDS: SODIUM CHLORIDE 0.9% 1,000 ML IV SCH ×2 (07:50→18:16)
[2022-02-03] MEDS: VITAMIN A 10,000 UNIT (3000 MCG) CAPSULE PO SCH (08:09)
[2022-02-03] MEDS: VANCOMYCIN 1,250 MG in SODIUM CHLORIDE 0.9% 250 ML IVPB SCH (12:32)
[2022-02-03 20:02] VITALS: RESP 16
--- NOTE | 2022-02-03 22:49 | P.CONS ---
History of Present Illness - Reason for Consult Consult date: 02/03/22 - History of Present Illness Patient is a 31-year female with a past medical history significant for Hirschsprung's disease, in this patient who did have Broviac for TPN that the patient uses every night and the current port has been there for almost 12 years, patient recently did have a positive blood culture with micrococcus that was treated with the vancomycin and the patient repeat culture negative patient mentioned 3 days ago when she started refusing her TPN and she noticed to having rigors and chills and did have a fever concerning for possible infection patient subsequently was evaluated by her primary care physician and the patient did have a blood culture drawn 2 days ago which came back positive with gram- positive cocci for which the patient presented to the hospital on arrival to the ER the patient was afebrile and no fever have been recorded subsequently he did have a normal white count in the fourth and has been normal liver exams mildly elevated urine has been positive patient was started on vancomycin has been admitted to hospital infectious disease was consulted for further management of antibiotic therapy Past Medical History Additional Past Medical History / Comment(s): hirschsprung's disease, broviac for supplemental nutrition (2020) History of Any Multi-Drug Resistant Organisms: None Reported Past Surgical History: Bowel Resection Additional Past Surgical History / Comment(s): ileuostomy, Additional Past Anesthesia/Blood Transfusion Reaction / Comm: no hx for pt or in family Past Psychological History: No Psychological Hx Reported Smoking Status: Never smoker Past Alcohol Use History: None Reported Past Drug Use History: None Reported - Past Family History Father Family Medical History: No Reported History Mother Family Medical History: No Reported History Medications and Allergies Home Medications Medication Instructions Recorded Confirmed Type Cholecalciferol (Vitamin D3) 10,000 unit PO DAILY 09/23/18 02/02/22 History [Vitamin D3] Amoxicillin/Potassium Clav 1 tab PO DIRECTED 02/02/22 02/02/22 History [Augmentin 250-125] Ascorbic Acid [Vitamin C] 1,000 mg PO DAILY 02/02/22 02/02/22 History Ciprofloxacin HCl [Cipro] 500 mg PO DIRECTED 02/02/22 02/02/22 History Allergies Allergy/AdvReac Type Severity Reaction Status Date / Time Cephalosporins Allergy Nausea Verified 02/02/22 22:48 heparin Allergy Rapid Verified 02/02/22 22:48 Heart Rate latex Allergy Rash/Hives Verified 02/02/22 22:48 Physical Exam Vitals: Vital Signs Temp Pulse Pulse Resp BP BP Pulse Ox 02/03/22 04:47 97.5 F L 78 16 85/51 99 02/03/22 02:31 98.1 F 67 16 91/58 98 02/03/22 02:07 70 18 113/78 100 Intake and Output 02/02/22 02/03/22 02/03/22 22:59 06:59 14:59 Intake Total 520 Balance 520 Intake: Intake, IV Titration 520 Amount Sodium Chloride 0.9% 1, 520 000 ml @ 130 mls/hr IV . [id number] [facility] Rx#:[id number] Other: Voiding Method Toilet Weight 56.4 kg 56.4 kg Results CBC & Chem 7: 02/02/22 22:17 02/02/22 22:17 Labs: Abnormal Lab Results - Last 24 Hours (Table) 02/02/22 02/02/22 02/03/22 Range/Units 22:17 22:17 02:55 Hgb 10.7 L (11.4-16.0) gm/dL Sodium 136 L (137-145) mmol/L BUN 31 H (7-17) mg/dL AST 67 H (14-36) U/L ALT 75 H (4-34) U/L Alkaline Phosphatase 169 H (38-126) U/L Total Protein 5.8 L (6.3-8.2) g/dL Albumin 3.1 L (3.5-5.0) g/dL Urine Appearance Cloudy H (Clear) Urine Protein 2+ H (Negative) Urine Blood Large H (Negative) Ur Leukocyte Esterase Moderate H (Negative) Urine RBC >182 H (0-5) /hpf Urine WBC 30 H (0-5) /hpf Urine Bacteria Occasional H (None) /hpf Hyaline Casts 6 H (0-2) /lpf Urine Mucus Rare H (None) /hpf Assessment and Plan Plan: 1patient with a positive blood culture with gram-positive cocci in this patient who did have a Broviac for nightly TPN infusion with the symptom started when the patient started having confusion few nights ago likely related to the line infection however the patient is currently nontoxic no fever no reweight white count questionably coagulase-negative staph. 2blood culture has been obtained and those will be followed, if the blood cultu res finalized as coagulase-negative staph for micrococcus may try to salavage the central line by 10-day treatment course of IV vancomycin however if the blood culture finalized with MRSA or if the patient did have persistent bacteremia the line will have to come out this was explained detail with the patient 3-for now continue the vancomycin pharmacy to dose while watching kidney function closely We will follow on clinical condition and cultures to further adjust medication if needed Thank you for this consultation will follow this patient along with you Time with Patient: Greater than 30
[2022-02-04] MEDS: VANCOMYCIN 1,250 MG in SODIUM CHLORIDE 0.9% 250 ML IVPB SCH ×2 (00:39→11:52)
[2022-02-04] MEDS: SODIUM CHLORIDE 0.9% 1,000 ML IV SCH ×2 (00:40→05:53)
[2022-02-04 05:43] VITALS: TEMP 98.2
[2022-02-04] MEDS: CHOLECALCIFEROL 125 MCG (5000 IU) TABLET PO SCH (08:39)
[2022-02-04] MEDS: VITAMIN A 10,000 UNIT (3000 MCG) CAPSULE PO SCH (08:40)
[2022-02-04] MEDS ORDERED: ASCORBIC ACID 500 MG TAB PO SCH (09:00)
[2022-02-04] MEDS ORDERED: VANCOMYCIN TROUGH DUE 1 EACH MISC MISCELLANE ONE (11:00)
[2022-02-04 12:09] VITALS: BP 100/60; PULSE 68
[2022-02-04 12:20] LABS: Basophils % (A) 1 %; Eosinophils # (A) 0.4 k/uL (0-0.7); Eosinophils % (A) 9 %; HCT 33.8 % (34.0-46.0); HGB 10.6 gm/dL (11.4-16.0); Lymphocytes # (A) 1.1 k/uL (1.0-4.8); Lymphocytes % (A) 26 %; MCH 28.8 pg (25.0-35.0); MCHC 31.5 g/dL (31.0-37.0); MCV 91.4 fL (80.0-100.0); Mean Platelet Volume 8.8; Monocytes # (A) 0.3 k/uL (0-1.0); Monocytes % (A) 7 %; Neutrophils # (A) 2.2 k/uL (1.3-7.7); Neutrophils % (A) 54 %; Platelet Count 186 k/uL (150-450); RBC 3.69 m/uL (3.80-5.40); WBC 4.1 k/uL (3.8-10.6)
[2022-02-04] MEDS ORDERED: VANCOMYCIN IV PER PHARMACY 1 EACH MISC MISCELLANE PRN (12:20)
[2022-02-04 12:25] LABS: African American GFR (CKD) 67 (>60 ml/min/1.73 sqM); Anion Gap 11 mmol/L; Blood Urea Nitrogen 18 mg/dL (7-17); C Reactive Protein 1.4 mg/dL (<1.0); Calcium 8.3 mg/dL (8.4-10.2); Carbon Dioxide 22 mmol/L (22-30); Chloride 108 mmol/L (98-107); Glucose 87 mg/dL (74-99); Non-African American GFR(CKD) 58 (>60 ml/min/1.73 sqM); Potassium 3.7 mmol/L (3.5-5.1); Sodium 141 mmol/L (137-145)
== END 2022-02-04 14:01 | disposition home or self-care (01) | DRG 315 ==
LOC: EC 12:11 → 5NMEDONC 21:53
PROVIDERS: ADMIT Internal Medicine; ATTEND Internal Medicine
DX: T80.211A Bloodstream infection due to central venous catheter, initial encounter (principal); Q43.1 Hirschsprung's disease; B95.7 Other staphylococcus as the cause of diseases classified elsewhere; R41.0 Disorientation, unspecified; Y82.8 Other medical devices associated with adverse incidents; Z95.828 Presence of other vascular implants and grafts; Z90.49 Acquired absence of other specified parts of digestive tract; Z86.19 Personal history of other infectious and parasitic diseases; Z93.2 Ileostomy status; Z79.899 Other long term (current) drug therapy; Z88.8 Allergy status to other drugs, medicaments and biological substances; Z91.040 Latex allergy status; Z88.0 Allergy status to penicillin
CPT/HCPCS: 80048; 80053; 80202; 81001; 81025; 84145; 85025; 86140; 87040; 87077; 87186; 96365; 96366; 96368; 99284

== ENCOUNTER → 2022-03-09 | Outpatient (CLI) | payer BC ==
[2022-03-09 18:49] LABS: Basophils # (A) 0.04 X 10*3/uL (0.00-0.10); Basophils % (A) 0.5 %; Eosinophils # (A) 0.33 X 10*3/uL (0.04-0.35); Eosinophils % (A) 4.3 %; HCT 33.2 % (37.2-46.3); HGB 10.2 g/dL (12.0-15.0); Immature Grans, Automated 0.4 %; Lymphocytes # (A) 1.62 X 10*3/uL (0.90-5.00); Lymphocytes % (A) 21.2 %; MCHC 30.7 g/dL (32.0-37.0); MCV 91.2 fL (80.0-97.0); Mean Platelet Volume 11.3 fL (9.5-12.2); Monocytes # (A) 0.64 X 10*3/uL (0.20-1.00); Monocytes % (A) 8.4 %; NRBC Per 100 WBC 0 /100 WBCS (0.0-0.0); Neutrophils # (A) 4.99 X 10*3/uL (1.80-7.70); Neutrophils % (A) 65.2 %; Platelet Count 239 X 10*3/uL (140-440); RBC 3.64 X 10*6/uL (4.10-5.20); RDW 11.9 % (11.5-14.5); WBC 7.65 X 10*3/uL (4.50-10.00)
[2022-03-09 19:06] LABS: African American GFR (CKD) 100.1 (60.0-200.0); Albumin 3.6 g/dL (3.8-4.9); Albumin/Globulin Ratio 1.38 (1.60-3.17); Anion Gap 10.2 mmol/L (10.00-18.00); BUN/Creat Ratio 35.67 Ratio (12.00-20.00); Blood Urea Nitrogen 32.1 mg/dL (9.0-27.0); Calcium 8.7 mg/dL (8.7-10.3); Carbon Dioxide 27.8 mmol/L (20.0-27.5); Globulin 2.6 g/dL (1.6-3.3); Non-African American GFR(CKD) 86.4 (60.0-200.0); Potassium 4.5 mmol/L (3.5-5.5); Total Bilirubin 0.2 mg/dL (0.30-1.20); Total Protein 6.2 g/dL (6.2-8.2)
== END | disposition home or self-care (01) ==
LOC: LABWHC1 11:21
PROVIDERS: ATTEND Family Medicine
DX: N20.0 Calculus of kidney (principal); N17.9 Acute kidney failure, unspecified
CPT/HCPCS: 36415; 80053; 85025; 87086

== ENCOUNTER → 2022-08-14 | Outpatient (CLI) | payer BC ==
[2022-08-14 14:13] VITALS: BP 101/72; PULSE 77; RESP 16; TEMP 97.6
== END ==
LOC: PROCWHC3 13:11
PROVIDERS: ATTEND Family Medicine
DX: Z95.828 Presence of other vascular implants and grafts (principal); Z91.040 Latex allergy status; Z88.1 Allergy status to other antibiotic agents; Z88.8 Allergy status to other drugs, medicaments and biological substances
CPT/HCPCS: 36591; 87040

== ENCOUNTER 2022-08-16 08:57 | Inpatient (IN) | payer BC ==
--- NOTE | 2022-08-16 09:37 | ED ---
General Adult HPI - General Chief complaint: Recheck/Abnormal Lab/Rx Stated complaint: bacterial infection Time Seen by Provider: 08/16/22 09:21 Source: patient Mode of arrival: ambulatory Limitations: no limitations - History of Present Illness Initial comments: Dictation was produced using [employer] dictation software. please excuse any grammatical, word or spelling errors. Chief Complaint: 31-year-old female past medical history of indwelling Broviac catheter presents emergency department for positive blood culture History of Present Illness: Is a 31-year-old female she has history of Hirschsprung's disease. She is TPN dependent. She has a Broviac catheter. She started having chills for the last 3 days. She had blood cultures ordered 2 days ago. The culture came back positive for Klebsiella. She has been having chills and night sweats. Patient states that her symptoms are similar to having had positive blood cultures in the past. The ROS documented in this emergency department record has been reviewed and confirmed by me. Those systems with pertinent positive or negative responses have been documented in the HPI. All other systems are other negative and/or noncontributory. PHYSICAL EXAM: General Impression: Alert and oriented x3, not in acute distress HEENT: Normocephalic atraumatic, extra-ocular movements intact, pupils equal and reactive to light bilaterally, mucous membranes moist. Cardiovascular: Heart regular rate and rhythm Chest: Able to complete full sentences, no retractions, no tachypnea Abdomen: abdomen soft, non-tender, non-distended, no organomegaly Musculoskeletal: Pulses present and equal in all extremities, no peripheral edema Motor: no focal deficits noted Neurological: CN II-XII grossly intact, no focal motor or sensory deficits noted Skin: Intact with no visualized rashes. Percutaneous catheter in place, there is no erythema or induration along the tunnel site. There is no discharge coming from the insertion site from the skin Psych: Normal affect and mood ED course: 31-year-old female presents emergency Department positive blood cultures. She has indwelling percutaneous catheter to receive TPN. Patient is TPN dependent secondary to Hirschsprung's disease. Vital signs upon arrival are within acceptable limits. Nursing notes and chart review was performed Laboratory evaluation obtained. CBC unremarkable. Sodium is 1:30. Rest of labs are within acceptable limits. There is concerns of positive urinary tract infection. Suspicion is that patient's UTI had contiguously spread to cause bacteremia. Patient given Levaquin. Patient be admitted with consultation to infectious disease. - Related Data Home Medications Medication Instructions Recorded Confirmed Amoxic-Pot Clav 500-125 mg 1 tab PO DIRECTED 08/16/22 08/16/22 [Augmentin 500-125 mg] [id number]-[id number] Acid 1 cap PO DAILY 08/16/22 08/16/22 [-U Capsule (formulary)] Allergies Allergy/AdvReac Type Severity Reaction Status Date / Time Cephalosporins Allergy Nausea Verified 08/16/22 10:52 heparin Allergy Rapid Verified 08/16/22 10:52 Heart Rate latex Allergy Rash/Hives Verified 08/16/22 10:52 Review of Systems ROS Statement: Those systems with pertinent positive or pertinent negative responses have been documented in the HPI. ROS Other: All systems not noted in ROS Statement are negative. Past Medical History Additional Past Medical History / Comment(s): hirschsprung's disease, broviac for supplemental nutrition (2020) History of Any Multi-Drug Resistant Organisms: None Reported Past Surgical History: Bowel Resection Additional Past Surgical History / Comment(s): ileuostomy, Additional Past Anesthesia/Blood Transfusion Reaction / Comment(s): no hx for pt or in family Past Psychological History: No Psychological Hx Reported Smoking Status: Never smoker Past Alcohol Use History: None Reported Past Drug Use History: None Reported - Past Family History Father Family Medical History: No Reported History Mother Family Medical History: No Reported History General Exam Limitations: no limitations Course Vital Signs 08/16/22 09:09 Temperature 98.4 F Pulse Rate 91 Respiratory 18 Rate Blood Pressure 118/77 O2 Sat by Pulse 98 Oximetry Medical Decision Making - Lab Data Result diagrams: 08/16/22 09:42 08/16/22 09:42 Lab Results 08/16/22 08/16/22 08/16/22 Range/Units 09:42 09:42 09:42 WBC 9.2 (3.8-10.6) k/uL RBC 3.45 L (3.80-5.40) m/uL Hgb 10.5 L (11.4-16.0) gm/dL Hct 30.9 L (34.0-46.0) % MCV 89.6 (80.0-100.0) fL MCH 30.5 (25.0-35.0) pg MCHC 34.0 (31.0-37.0) g/dL RDW 11.9 (11.5-15.5) % Plt Count 247 (150-450) k/uL MPV 8.4 Neutrophils % 76 % Lymphocytes % 13 % Monocytes % 5 % Eosinophils % 1 % Basophils % 0 % Neutrophils # 7.0 (1.3-7.7) k/uL Lymphocytes # 1.2 (1.0-4.8) k/uL Monocytes # 0.5 (0-1.0) k/uL Eosinophils # 0.1 (0-0.7) k/uL Basophils # 0.0 (0-0.2) k/uL Sodium 130 L (137-145) mmol/L Potassium 3.9 (3.5-5.1) mmol/L Chloride 95 L (98-107) mmol/L Carbon Dioxide 29 (22-30) mmol/L Anion Gap 6 mmol/L BUN 51 H (7-17) mg/dL Creatinine 1.22 H (0.52-1.04) mg/dL Est GFR (CKD-EPI)AfAm 69 (>60 ml/min/1.73 sqM) Est GFR (CKD-EPI)NonAf 60 (>60 ml/min/1.73 sqM) Glucose 131 H (74-99) mg/dL Plasma Lactic Acid Mu (0.7-2.0) mmol/L Calcium 9.4 (8.4-10.2) mg/dL Magnesium 2.1 (1.6-2.3) mg/dL Total Bilirubin 0.4 (0.2-1.3) mg/dL AST 54 H (14-36) U/L ALT 74 H (4-34) U/L Alkaline Phosphatase 204 H (38-126) U/L Total Protein 5.1 L (6.3-8.2) g/dL Albumin 2.5 L (3.5-5.0) g/dL HCG, Quant <2.4 mIU/mL Urine Color Yellow Urine Appearance Cloudy H (Clear) Urine pH 6.0 (5.0-8.0) Ur Specific [place] 1.027 (1.001-1.035) Urine Protein 3+ H (Negative) Urine Glucose (UA) Negative (Negative) Urine Ketones Negative (Negative) Urine Blood Large H (Negative) Urine Nitrite Negative (Negative) Urine Bilirubin Negative (Negative) Urine Urobilinogen <2.0 (<2.0) mg/dL Ur Leukocyte Esterase Moderate H (Negative) Urine RBC >182 H (0-5) /hpf Urine WBC 70 H (0-5) /hpf Urine WBC Clumps Few H (None) /hpf Ur Squamous Epith Cells 2 (0-4) /hpf Amorphous Sediment Rare H (None) /hpf Urine Bacteria Rare H (None) /hpf Hyaline Casts 81 H (0-2) /lpf Urine Mucus Rare H (None) /hpf Urine Yeast (Budding) Occasional H (None) /hpf 08/16/22 Range/Units 09:42 WBC (3.8-10.6) k/uL RBC (3.80-5.40) m/uL Hgb (11.4-16.0) gm/dL Hct (34.0-46.0) % MCV (80.0-100.0) fL MCH (25.0-35.0) pg MCHC (31.0-37.0) g/dL RDW (11.5-15.5) % Plt Count (150-450) k/uL MPV Neutrophils % % Lymphocytes % % Monocytes % % Eosinophils % % Basophils % % Neutrophils # (1.3-7.7) k/uL Lymphocytes # (1.0-4.8) k/uL Monocytes # (0-1.0) k/uL Eosinophils # (0-0.7) k/uL Basophils # (0-0.2) k/uL Sodium (137-145) mmol/L Potassium (3.5-5.1) mmol/L Chloride (98-107) mmol/L Carbon Dioxide (22-30) mmol/L Anion Gap mmol/L BUN (7-17) mg/dL Creatinine (0.52-1.04) mg/dL Est GFR (CKD-EPI)AfAm (>60 ml/min/1.73 sqM) Est GFR (CKD-EPI)NonAf (>60 ml/min/1.73 sqM) Glucose (74-99) mg/dL Plasma Lactic Acid Mu 1.0 (0.7-2.0) mmol/L Calcium (8.4-10.2) mg/dL Magnesium (1.6-2.3) mg/dL Total Bilirubin (0.2-1.3) mg/dL AST (14-36) U/L ALT (4-34) U/L Alkaline Phosphatase (38-126) U/L Total Protein (6.3-8.2) g/dL Albumin (3.5-5.0) g/dL HCG, Quant mIU/mL Urine Color Urine Appearance (Clear) Urine pH (5.0-8.0) Ur Specific [place] (1.001-1.035) Urine Protein (Negative) Urine Glucose (UA) (Negative) Urine Ketones (Negative) Urine Blood (Negative) Urine Nitrite (Negative) Urine Bilirubin (Negative) Urine Urobilinogen (<2.0) mg/dL Ur Leukocyte Esterase (Negative) Urine RBC (0-5) /hpf Urine WBC (0-5) /hpf Urine WBC Clumps (None) /hpf Ur Squamous Epith Cells (0-4) /hpf Amorphous Sediment (None) /hpf Urine Bacteria (None) /hpf Hyaline Casts (0-2) /lpf Urine Mucus (None) /hpf Urine Yeast (Budding) (None) /hpf Disposition Clinical Impression: Bacteremia Disposition: ADMITTED IP TO THIS HOSP Condition: Serious Referrals: Tera Vasquez MD [Primary Care Provider] - 1-2 days Decision Time: 11:37
[2022-08-16 10:24] LABS: Basophils % (A) 0 %; Eosinophils # (A) 0.1 k/uL (0-0.7); Eosinophils % (A) 1 %; HCT 30.9 % (34.0-46.0); HGB 10.5 gm/dL (11.4-16.0); Lymphocytes # (A) 1.2 k/uL (1.0-4.8); Lymphocytes % (A) 13 %; MCH 30.5 pg (25.0-35.0); MCV 89.6 fL (80.0-100.0); Mean Platelet Volume 8.4; Monocytes # (A) 0.5 k/uL (0-1.0); Monocytes % (A) 5 %; Neutrophils % (A) 76 %; Platelet Count 247 k/uL (150-450); RBC 3.45 m/uL (3.80-5.40); RDW 11.9 % (11.5-15.5); WBC 9.2 k/uL (3.8-10.6)
[2022-08-16 10:28] LABS: Amorphous Sediment,Urine Rare /hpf; Appearance,Urine Cloudy (Clear); Bacteria,Urine Rare /hpf; Bilirubin,Urine Negative (Negative); Blood,Urine Large (Negative); Budding Yeast,Urine Occasional /hpf; Color,Urine Yellow; Glucose,Urine (UA) Negative (Negative); Hyaline Casts,Urine 81 /lpf (0-2); Ketones,Urine Negative (Negative); Leukocyte Esterase,Urine Moderate (Negative); Mucus,Urine Rare /hpf; Nitrite,Urine Negative (Negative); Protein,Urine 3+ (Negative); RBC,Urine >182 /hpf (0-5); Specific Gravity,Urine 1.027 (1.001-1.035); Squamous Epithelial Cell,Urine 2 /hpf (0-4); Urobilinogen,Urine <2.0 mg/dL (<2.0); WBC,Urine 70 /hpf (0-5)
[2022-08-16 10:35] LABS: ALT 74 U/L (4-34); AST 54 U/L (14-36); African American GFR (CKD) 69 (>60 ml/min/1.73 sqM); Albumin 2.5 g/dL (3.5-5.0); Alkaline Phosphatase 204 U/L (38-126); Anion Gap 6 mmol/L; Blood Urea Nitrogen 51 mg/dL (7-17); Calcium 9.4 mg/dL (8.4-10.2); Carbon Dioxide 29 mmol/L (22-30); Chloride 95 mmol/L (98-107); Glucose 131 mg/dL (74-99); Magnesium 2.1 mg/dL (1.6-2.3); Non-African American GFR(CKD) 60 (>60 ml/min/1.73 sqM); Potassium 3.9 mmol/L (3.5-5.1); Sodium 130 mmol/L (137-145); Total Bilirubin 0.4 mg/dL (0.2-1.3); Total Protein 5.1 g/dL (6.3-8.2)
[2022-08-16 10:51] LABS: HCG,Quantitative Serum <2.4 mIU/mL
[2022-08-16] MEDS ORDERED: NALOXONE 0.4 MG/ML 1 ML VIAL IV PRN (11:35)
[2022-08-16] MEDS ORDERED: LEVOFLOXACIN 750MG-D5W PMX 750 MG in DEXTROSE/WATER 1 150ML.BAG IVPB STA (11:36)
[2022-08-16] MEDS ORDERED: SODIUM CHLORIDE 0.9% 1,000 ML IV STA (12:14)
--- NOTE | 2022-08-16 12:19 | P.HPIM ---
History of Present Illness This is a pleasant 31 years old female with past medical history of hirschsprung's disease, and she's been receiving nutrition through broviac for supplemental nutrition (for about 10-15 years ) as well as orally she follows up with Dr. Arana at [facility] regarding her Hirschsprung's disease. Patient had previously infection in her port and a few days ago she felt the same, she felt fever and chills although she did not document a fever and temperature she called her PCP Dr. Vasquez and ask for blood culture which he ordered and she was to call today with positive results for Klebsiella with a request to come to emergency room. Patient lying in bed comfortable with no distress currently. She denies any abdominal pain or chest pain. No vomiting or diarrhea. No coughing or shortness of breath. No headache dizziness weakness or numbness. No urinary tract dysuria or urgency. She denies smoking alcohol or illicit drugs Vitals are stable and patient is afebrile on admission. unremarkable cbc except for mild anemia of 10.5. sodium 1:30, creatinine is mildly elevated at 1.22. liver enzymes slightly elevated with ast 54 and alt 74. hcg quantitative is less than 2.4 urine analysis is suspicious for infection blood culture from 08/14/2022 showing final results for Klebsiella pneumonia that is sensitive to many antibiotics picture seems one-time dose of Levaquin and emergency room (The whole encounter including exam done in the presents of family member at bedside) Review of Systems Review of systems CONSTITUTIONAL: No fever, no malaise, no fatigue. HEENT: No recent visual problems or hearing problems. Denied any sore throat. CARDIOVASCULAR: No orthopnea, PND, no palpitations, no syncope. PULMONARY: No shortness of breath, no cough, no hemoptysis. GASTROINTESTINAL: No diarrhea, no nausea, no vomiting, no abdominal pain. Normoactive bowel sounds. NEUROLOGICAL: No headaches, no weakness, no numbness. HEMATOLOGICAL: Denies any bleeding or petechiae. GENITOURINARY: Denies any burning micturition, frequency, or urgency. MUSCULOSKELETAL/RHEUMATOLOGICAL: Denies any joint pain, swelling, or any muscle pain. ENDOCRINE: Denies any polyuria or polydipsia. Past Medical History Additional Past Medical History / Comment(s): hirschsprung's disease, broviac for supplemental nutrition (2020) History of Any Multi-Drug Resistant Organisms: None Reported Past Surgical History: Bowel Resection Additional Past Surgical History / Comment(s): ileuostomy, Additional Past Anesthesia/Blood Transfusion Reaction / Comment(s): no hx for pt or in family Past Psychological History: No Psychological Hx Reported Smoking Status: Never smoker Past Alcohol Use History: None Reported Past Drug Use History: None Reported - Past Family History Father Family Medical History: No Reported History Mother Family Medical History: No Reported History Medications and Allergies Home Medications Medication Instructions Recorded Confirmed Type Amoxic-Pot Clav 500-125 mg 1 tab PO DIRECTED 08/16/22 08/16/22 History [Augmentin 500-125 mg] Ami-Dhic-Xaxbt Acid 1 cap PO DAILY 08/16/22 08/16/22 History [-U Capsule (formulary)] Allergies Allergy/AdvReac Type Severity Reaction Status Date / Time Cephalosporins Allergy Nausea Verified 08/16/22 10:52 heparin Allergy Rapid Verified 08/16/22 10:52 Heart Rate latex Allergy Rash/Hives Verified 08/16/22 10:52 Physical Exam Vitals: Vital Signs Temp Pulse Resp BP Pulse Ox 08/16/22 09:09 98.4 F 91 18 118/77 98 Intake and Output 08/15/22 08/16/22 08/16/22 22:59 06:59 14:59 Other: Weight 53.07 kg GENERAL: The patient is alert and oriented x3, not in any acute distress. Well developed, well nourished. HEENT: Pupils are round and equally reacting to light. EOMI. No scleral icterus. No conjunctival pallor. Normocephalic, atraumatic. No pharyngeal erythema. No thyromegaly. CARDIOVASCULAR: S1 and S2 present. No murmurs, rubs, or gallops. PULMONARY: Chest is clear to auscultation, no wheezing or crackles. -ABDOMEN: Soft, nontender, nondistended, normoactive bowel sounds. No palpable organomegaly. Feeding tube in the upper abdomen lower chest with no surrounding cellulitis, it looks in a Place MUSCULOSKELETAL: No joint swelling or deformity. EXTREMITIES: No cyanosis, clubbing, or pedal edema. NEUROLOGICAL: Gross neurological examination did not reveal any focal deficits. SKIN: No rashes. no petechiae. Results CBC & Chem 7: 08/16/22 09:42 08/16/22 09:42 Labs: Abnormal Lab Results - Last 24 Hours (Table) 08/16/22 08/16/22 08/16/22 Range/Units 09:42 09:42 09:42 RBC 3.45 L (3.80-5.40) m/uL Hgb 10.5 L (11.4-16.0) gm/dL Hct 30.9 L (34.0-46.0) % Sodium 130 L (137-145) mmol/L Chloride 95 L (98-107) mmol/L BUN 51 H (7-17) mg/dL Creatinine 1.22 H (0.52-1.04) mg/dL Glucose 131 H (74-99) mg/dL AST 54 H (14-36) U/L ALT 74 H (4-34) U/L Alkaline Phosphatase 204 H (38-126) U/L Total Protein 5.1 L (6.3-8.2) g/dL Albumin 2.5 L (3.5-5.0) g/dL Urine Appearance Cloudy H (Clear) Urine Protein 3+ H (Negative) Urine Blood Large H (Negative) Ur Leukocyte Esterase Moderate H (Negative) Urine RBC >182 H (0-5) /hpf Urine WBC 70 H (0-5) /hpf Urine WBC Clumps Few H (None) /hpf Amorphous Sediment Rare H (None) /hpf Urine Bacteria Rare H (None) /hpf Hyaline Casts 81 H (0-2) /lpf Urine Mucus Rare H (None) /hpf Urine Yeast (Budding) Occasional H (None) /hpf Assessment and Plan Assessment: Klebsiella bacteremia, unknown source could be urinary tract, port versus others Possible acute urinary tract infection Mild acute kidney injury most likely prerenal Hypovolemic hyponatremia Patient looks dehydrated Mild transaminitis history of hirschsprung's disease, and she's been receiving nutrition through broviac for supplemental nutrition Plan: Continue with IV hydration, currently normal saline at 75 mL/h Patient has Received Levaquin antibiotic Infectious disease consult Follow-up urine culture Labs and medication were reviewed.. Continue same treatment. Continue with symptomatic treatment. Resume home medication. Monitor labs and vitals. DVT and GI prophylaxis. Further recommendations as per clinical course of the claudine ent DVT prophylaxis: Subcutaneous heparin GI Prophylaxis: Pepcid PT/OT: Pending Prognosis is guarded
[2022-08-16] MEDS: SODIUM CHLORIDE 0.9% 1,000 ML IV SCH (12:47)
[2022-08-16 18:03] VITALS: RESP 16
[2022-08-16] MEDS: AMPICILLIN-SULBACTAM 3 GM in SODIUM CHLORIDE 0.9% 100 ML IVPB SCH (18:31)
--- NOTE | 2022-08-16 23:24 | P.CONS ---
History of Present Illness - Reason for Consult Consult date: 08/16/22 - History of Present Illness Patient is a 31-year-old female with a past medical history sniffing for Hirschsprung's disease TPN dependent in this patient who did have a chronic indwelling Broviac catheter with the patient has for many years she did have a history of line sepsis and was admitted to [facility] in January 2022 the patient did have a staph epi bacteremia treated with vancomycin in the outpatie nt setting and the patient subsequently cleared her bacteremia and was doing okay patient mention over the last few days she has developed symptoms suggestive of line infection with the patient did have rigors and chills feeling weak some nausea but no vomiting did have some headache patient was evaluated by her primary care physician on 08/14/2022 and the patient did have blood cultures drawn from the port which came back positive with Klebsiella for the patient was advised to go to the ER patient on presentation to the hospital has been afebrile and no fever have been recorded subsequently patient did have a normal white count did have elevated BUN and creatinine levels of the mildly elevated did have a positive UA patient was given a dose of Levaquin she did have cephalosporin allergy many years ago with a rash however the patient subsequently has tolerated Augmentin and amoxicillin without any problem infectious disease was consulted for further management of antibiotic therapy Past Medical History Additional Past Medical History / Comment(s): hirschsprung's disease, broviac for supplemental nutrition (2020) History of Any Multi-Drug Resistant Organisms: None Reported Past Surgical History: Bowel Resection Additional Past Surgical History / Comment(s): ileuostomy, Additional Past Anesthesia/Blood Transfusion Reaction / Comm: no hx for pt or in family Past Psychological History: No Psychological Hx Reported Smoking Status: Never smoker Past Alcohol Use History: None Reported Past Drug Use History: None Reported - Past Family History Father Family Medical History: No Reported History Mother Family Medical History: No Reported History Medications and Allergies Home Medications Medication Instructions Recorded Confirmed Type Amoxic-Pot Clav 500-125 mg 1 tab PO DIRECTED 08/16/22 08/16/22 History [Augmentin 500-125 mg] Urk-Fwmw-Zopzb Acid 1 cap PO DAILY 08/16/22 08/16/22 History [-U Capsule (formulary)] Allergies Allergy/AdvReac Type Severity Reaction Status Date / Time Cephalosporins Allergy Nausea Verified 08/16/22 10:52 heparin Allergy Rapid Verified 08/16/22 10:52 Heart Rate latex Allergy Rash/Hives Verified 08/16/22 10:52 Physical Exam Vitals: Vital Signs Temp Pulse Resp BP Pulse Ox 08/16/22 14:56 79 15 98/64 100 08/16/22 12:14 88 15 119/77 99 08/16/22 09:09 98.4 F 91 18 118/77 98 Intake and Output 08/16/22 08/16/22 08/16/22 06:59 14:59 22:59 Other: Weight 53.07 kg Results CBC & Chem 7: 08/16/22 09:42 08/16/22 09:42 Labs: Abnormal Lab Results - Last 24 Hours (Table) 08/16/22 08/16/22 08/16/22 Range/Units 09:42 09:42 09:42 RBC 3.45 L (3.80-5.40) m/uL Hgb 10.5 L (11.4-16.0) gm/dL Hct 30.9 L (34.0-46.0) % Sodium 130 L (137-145) mmol/L Chloride 95 L (98-107) mmol/L BUN 51 H (7-17) mg/dL Creatinine 1.22 H (0.52-1.04) mg/dL Glucose 131 H (74-99) mg/dL AST 54 H (14-36) U/L ALT 74 H (4-34) U/L Alkaline Phosphatase 204 H (38-126) U/L Total Protein 5.1 L (6.3-8.2) g/dL Albumin 2.5 L (3.5-5.0) g/dL Urine Appearance Cloudy H (Clear) Urine Protein 3+ H (Negative) Urine Blood Large H (Negative) Ur Leukocyte Esterase Moderate H (Negative) Urine RBC >182 H (0-5) /hpf Urine WBC 70 H (0-5) /hpf Urine WBC Clumps Few H (None) /hpf Amorphous Sediment Rare H (None) /hpf Urine Bacteria Rare H (None) /hpf Hyaline Casts 81 H (0-2) /lpf Urine Mucus Rare H (None) /hpf Urine Yeast (Budding) Occasional H (None) /hpf Assessment and Plan Plan: 1patient with a Klebsiella bacteremia with a question of possible Broviac catheter infection in this patient as the current catheter for many years and did have an episode of staph epi bacteremia related to it in January 2022 that was subsequently successfully treated with vancomycin patient is very reluctant to the idea of removal of this catheter. 2patient with cephalosporin allergy that would limit the number of antibiotics safe to use however has tolerated penicillin without any problem. 3blood cultures repeated from the port as well as peripherally. 4we will start the patient on Unasyn 3 g every 6 hours which can be infused th rough the port. 5the patient did have evidence of persistent bacteremia the port will have to come out. We will follow on clinical condition and cultures to further adjust medication if needed Thank you for this consultation will follow this patient along with you Time with Patient: Greater than 30
[2022-08-17] MEDS: ACETAMINOPHEN TAB 325 MG TAB PO PRN ×2 (00:40→05:49)
[2022-08-17] MEDS: AMPICILLIN-SULBACTAM 3 GM in SODIUM CHLORIDE 0.9% 100 ML IVPB SCH ×5 (00:41→23:21)
[2022-08-17 08:30] LABS: Ionized Calcium 4.8 mg/dL (4.5-5.3)
[2022-08-17 08:45] LABS: ALT 56 U/L (4-34); AST 46 U/L (14-36); African American GFR (CKD) 53 (>60 ml/min/1.73 sqM); Albumin 2.2 g/dL (3.5-5.0); Alkaline Phosphatase 162 U/L (38-126); Anion Gap 9 mmol/L; Blood Urea Nitrogen 49 mg/dL (7-17); Calcium 8.1 mg/dL (8.4-10.2); Carbon Dioxide 31 mmol/L (22-30); Chloride 92 mmol/L (98-107); Globulin 2.3 g/dL; Glucose 103 mg/dL (74-99); Magnesium 1.7 mg/dL (1.6-2.3); Non-African American GFR(CKD) 46 (>60 ml/min/1.73 sqM); Potassium 3.6 mmol/L (3.5-5.1); Sodium 132 mmol/L (137-145); Total Bilirubin 0.3 mg/dL (0.2-1.3); Total Protein 4.5 g/dL (6.3-8.2)
[2022-08-17] MEDS ORDERED: FAMOTIDINE 20 MG/2 ML VIAL IV SCH (09:00)
[2022-08-17 10:31] LABS: Basophils # (A) 0.03 X 10*3/uL (0.00-0.10); Basophils % (A) 0.3 %; Eosinophils # (A) 0.04 X 10*3/uL (0.04-0.35); Eosinophils % (A) 0.4 %; HCT 26.3 % (37.2-46.3); HGB 8.9 g/dL (12.0-15.0); Immature Grans, Automated 1.4 %; Lymphocytes # (A) 0.71 X 10*3/uL (0.90-5.00); Lymphocytes % (A) 6.9 %; MCHC 33.8 g/dL (32.0-37.0); MCV 88.6 fL (80.0-97.0); Mean Platelet Volume 10.5 fL (9.5-12.2); Monocytes # (A) 0.64 X 10*3/uL (0.20-1.00); Monocytes % (A) 6.2 %; NRBC Per 100 WBC 0 /100 WBCS (0.0-0.0); Neutrophils # (A) 8.79 X 10*3/uL (1.80-7.70); Neutrophils % (A) 84.8 %; Platelet Count 208 X 10*3/uL (140-440); RBC 2.97 X 10*6/uL (4.10-5.20); RDW 12.1 % (11.5-14.5); WBC 10.36 X 10*3/uL (4.50-10.00)
[2022-08-17] MEDS: SODIUM CHLORIDE 0.9% 1,000 ML IV SCH (12:57)
[2022-08-17] MEDS ORDERED: PROMETHAZINE 25 MG TAB PO PRN (13:42)
[2022-08-17] MEDS ORDERED: ONDANSETRON 4 MG/2 ML VIAL IVP PRN (13:42)
[2022-08-17] MEDS: FAMOTIDINE 20 MG TAB PO SCH (23:21)
[2022-08-18] MEDS: AMPICILLIN-SULBACTAM 3 GM in SODIUM CHLORIDE 0.9% 100 ML IVPB SCH (05:37)
[2022-08-18 08:53] LABS: Basophils # (A) 0.01 X 10*3/uL (0.00-0.10); Basophils % (A) 0.3 %; Eosinophils % (A) 2.5 %; HCT 24.5 % (37.2-46.3); Immature Grans, Automated 1.8 %; Lymphocytes % (A) 22.6 %; MCH 29.7 pg (27.0-32.0); MCHC 32.7 g/dL (32.0-37.0); MCV 91.1 fL (80.0-97.0); Mean Platelet Volume 10.4 fL (9.5-12.2); Monocytes # (A) 0.64 X 10*3/uL (0.20-1.00); Monocytes % (A) 16.1 %; NRBC Per 100 WBC 0 /100 WBCS (0.0-0.0); Neutrophils # (A) 2.26 X 10*3/uL (1.80-7.70); Neutrophils % (A) 56.7 %; Platelet Count 151 X 10*3/uL (140-440); RBC 2.69 X 10*6/uL (4.10-5.20); RDW 11.9 % (11.5-14.5); WBC 3.98 X 10*3/uL (4.50-10.00)
[2022-08-18] MEDS ORDERED: FAMOTIDINE 20 MG/2 ML VIAL IV SCH (09:00)
[2022-08-18 09:17] LABS: African American GFR (CKD) 72.9 (60.0-200.0); Anion Gap 8.9 mmol/L (10.00-18.00); BUN/Creat Ratio 37.01 Ratio (12.00-20.00); Blood Urea Nitrogen 43.3 mg/dL (9.0-27.0); Calcium 7.5 mg/dL (8.7-10.3); Carbon Dioxide 27.6 mmol/L (20.0-27.5); Magnesium 3.3 mg/dL (1.5-2.4); Non-African American GFR(CKD) 62.9 (60.0-200.0); Phosphorus 2.9 mg/dL (2.4-5.1); Potassium 3.5 mmol/L (3.5-5.5)
[2022-08-18] MEDS: SODIUM CHLORIDE 0.9% 1,000 ML IV SCH (09:43)
[2022-08-18] MEDS: FAMOTIDINE 20 MG TAB PO SCH (09:43)
--- NOTE | 2022-08-18 11:36 | P.PN ---
Subjective This is a pleasant 31 years old female with past medical history of hirschsprung's disease, and she's been receiving nutrition through broviac for supplemental nutrition (for about 10-15 years ) as well as orally she follows up with Dr. Arana at [facility] regarding her Hirschsprung's disease. Patient had previously infection in her port and a few days ago she felt the same, she felt fever and chills although she did not document a fever and temperature she called her PCP Dr. Vasquez and ask for blood culture which he ordered and she was to call today with positive results for Klebsiella with a request to come to emergency room. Patient lying in bed comfortable with no distress currently. She denies any abdominal pain or chest pain. No vomiting or diarrhea. No coughing or shortness of breath. No headache dizziness weakness or numbness. No urinary tract dysuria or urgency. She denies smoking alcohol or illicit drugs Vitals are stable and patient is afebrile on admission. unremarkable cbc except for mild anemia of 10.5. sodium 1:30, creatinine is mildly elevated at 1.22. liver enzymes slightly elevated with ast 54 and alt 74. hcg quantitative is less than 2.4 urine analysis is suspicious for infection blood culture from 08/14/2022 showing final results for Klebsiella pneumonia that is sensitive to many antibiotics picture seems one-time dose of Levaquin and emergency room (The whole encounter including exam done in the presents of family member at bedside) 08/17/2022 Patient looks fine generally, she is sitting up in bed, alert awake oriented, denies any new complaints. She still getting tube feeding and also some a pleasure eating but she is not eating much. When I saw her she denies any abdominal pain, no right upper quadrant tenderness. I informed the patient about elevated liver enzymes and possible UTI, she denies also any urinary tract infections. However blood culture is still pending and patient remains on IV Unasyn. Also she is on normal saline at 75 L/h. Her creatinine went up to 1.5 so we consulted nephrology team. Urine culture still pending while she remains on Unasyn. Sodium is stable. Last night other than that happened low-grade temperature of 100.1. Blood pressure stable. Objective - Vital Signs Vital signs: Vital Signs Temp 100.1 F H 08/17/22 05:19 Pulse 94 08/17/22 05:19 Resp 16 08/17/22 05:19 BP 100/60 08/17/22 05:19 Pulse Ox 98 08/17/22 05:19 FiO2 Intake & Output 08/16/22 08/17/22 08/17/22 18:59 06:59 18:59 Intake Total 75 Output Total 2 Balance 75 -2 Weight 53.07 kg Intake: IV 75 Sodium Chloride 0.9% 1, 75 000 ml @ 75 mls/hr IV . [id number] STA Rx#:[id number] Output: Urine 2 - Exam GENERAL: The patient is alert and oriented x3, not in any acute distress. Well developed, well nourished. HEENT: Pupils are round and equally reacting to light. EOMI. No scleral icterus. No conjunctival pallor. Normocephalic, atraumatic. No pharyngeal erythema. No thyromegaly. CARDIOVASCULAR: S1 and S2 present. No murmurs, rubs, or gallops. PULMONARY: Chest is clear to auscultation, no wheezing or crackles. -ABDOMEN: Soft, nontender, nondistended, normoactive bowel sounds. No palpable organomegaly. Feeding tube in a Place. No surrounding cellulitis MUSCULOSKELETAL: No joint swelling or deformity. EXTREMITIES: No cyanosis, clubbing, or pedal edema. NEUROLOGICAL: Gross neurological examination did not reveal any focal deficits. SKIN: No rashes. no petechiae. - Labs CBC & Chem 7: 08/18/22 05:35 08/18/22 05:35 Labs: Abnormal Lab Results - Last 24 Hours (Table) 08/17/22 08/17/22 Range/Units 07:29 07:29 WBC 10.36 H (4.50-10.00) X 10*3/uL RBC 2.97 L (4.10-5.20) X 10*6/uL Hgb 8.9 L (12.0-15.0) g/dL Hct 26.3 L (37.2-46.3) % Immature Gran # 0.15 H (0.00-0.04) X 10*3/uL Neutrophils # 8.79 H (1.80-7.70) X 10*3/uL Lymphocytes # 0.71 L (0.90-5.00) X 10*3/uL Sodium 132 L (137-145) mmol/L Chloride 92 L (98-107) mmol/L Carbon Dioxide 31 H (22-30) mmol/L BUN 49 H (7-17) mg/dL Creatinine 1.53 H (0.52-1.04) mg/dL Glucose 103 H (74-99) mg/dL Calcium 8.1 L (8.4-10.2) mg/dL AST 46 H (14-36) U/L ALT 56 H (4-34) U/L Alkaline Phosphatase 162 H (38-126) U/L Total Protein 4.5 L (6.3-8.2) g/dL Albumin 2.2 L (3.5-5.0) g/dL Microbiology - Last 24 Hours (Table) 08/16/22 09:42 Urine Culture - Preliminary Urine,Voided Assessment and Plan Assessment: Klebsiella bacteremia, unknown source could be urinary tract, port versus others. Rule out port infection Possible acute urinary tract infection however patient does not have symptoms Mild acute kidney injury most likely prerenal Hypovolemic hyponatremia Patient looks dehydrated Mild transaminitis history of hirschsprung's disease, and she's been receiving nutrition through broviac for supplemental nutrition Plan: Continue with IV hydration, currently normal saline at 75 mL/h Patient has Received Levaquin antibiotic Infectious disease consult Follow-up urine culture Monitor liver enzymes and creatinine and sodium level. Monitor vitals. If patient develops abdominal symptoms we'll consider liver ultrasound Labs and medication were reviewed.. Continue same treatment. Continue with symptomatic treatment. Resume home medication. Monitor labs and vitals. DVT and GI prophylaxis. Further recommendations as per clinical course of the patient DVT prophylaxis: Subcutaneous heparin GI Prophylaxis: Pepcid PT/OT: Pending Prognosis is guarded
[2022-08-18] MEDS ORDERED: ERTAPENEM 1 GM in SODIUM CHLORIDE 0.9% 50 ML IVPB SCH (12:00)
[2022-08-18] MEDS ORDERED: POTASSIUM CHLORIDE ER 20 MEQ TAB.ER PO STA (12:06)
--- NOTE | 2022-08-18 12:08 | P.NPCON ---
History of Present Illness - Reason for Consult acute renal failure - History of Present Illness Reason for consultation: Acute kidney injury History of present illness: Patient is a 31-year-old female seen in renal consultation for acute kidney injury. Patient's baseline creatinine is near 1 and peaked at 1.53 this admission on 08/17/2022. It is down to 1.2 today. Patient received IV fluids yesterday but were stopped overnight. I am not sure why. Patient presented to the hospital due to chills for 3 days. She had blood cultures done prior to admission which came back positive for Klebsiella. Patient has history of Hirschsprung's disease and has a Broviac catheter that was placed over 10 years ago. She is currently on IV antibiotics. Blood cultures this admission so far have been negative. UA suggestive of UTI. Patient states she is currently also on her menstrual cycles. No history of diabetes. No history of hypertension. Denies family history of renal disease. Denies gross hematuria. Denies regular use of nonsteroidals. Patient has ileostomy. Vital signs are stable. General: The patient appeared well nourished and normally developed. HEENT: Head exam is unremarkable. LUNGS: There are 8 Breath sounds decreased. HEART: Rate and Rhythm are regular. ABDOMEN: Soft, no distention. Ileostomy noted. EXTREMITITES: No edema. Past Medical History Additional Past Medical History / Comment(s): hirschsprung's disease, broviac for supplemental nutrition (2020) History of Any Multi-Drug Resistant Organisms: None Reported Past Surgical History: Bowel Resection Additional Past Surgical History / Comment(s): ileuostomy, Additional Past Anesthesia/Blood Transfusion Reaction / Comment(s): no hx for pt or in family Past Psychological History: No Psychological Hx Reported Smoking Status: Never smoker Past Alcohol Use History: None Reported Past Drug Use History: None Reported - Past Family History Father Family Medical History: No Reported History Mother Family Medical History: No Reported History Medications and Allergies Home Medications Medication Instructions Recorded Confirmed Type Amoxic-Pot Clav 500-125 mg 1 tab PO DIRECTED 08/16/22 08/16/22 History [Augmentin 500-125 mg] Njr-Oziu-Dskqo Acid 1 cap PO DAILY 08/16/22 08/16/22 History [-U Capsule (formulary)] Allergies Allergy/AdvReac Type Severity Reaction Status Date / Time Cephalosporins Allergy Nausea Verified 08/16/22 10:52 heparin Allergy Rapid Verified 08/16/22 10:52 Heart Rate latex Allergy Rash/Hives Verified 08/16/22 10:52 Physical Exam Vitals: Vital Signs Temp Pulse Resp BP Pulse Ox 08/18/22 05:00 97.8 F 94 16 107/70 100 08/17/22 20:33 98.2 F 88 16 118/80 99 08/17/22 20:00 16 Intake and Output 08/17/22 08/18/22 08/18/22 22:59 06:59 14:59 Intake Total 1100 590 Balance 1100 590 Intake: Intake, IV Titration 1100 Amount Ampicillin-Sulbactam 3 gm 200 In Sodium Chloride 0.9% 100 ml @ 200 mls/hr IVPB Q6HR HARRY Rx#:[id number] Sodium Chloride 0.9% 1, 900 000 ml @ 75 mls/hr IV . [id number] STA Rx#:[id number] Oral 590 Other: Voiding Method Toilet Toilet # Voids 3 Results - Lab Results Most recent lab results Calcium 7.5 mg/dL (8.7-10.3) L 08/18/22 05:35 Phosphorus 2.9 mg/dL (2.4-5.1) 08/18/22 05:35 Magnesium 3.3 mg/dL (1.5-2.4) H 08/18/22 05:35 08/18/22 05:35 08/18/22 05:35 Assessment and Plan Plan: Assessment: 1. Acute kidney injury mostly prerenal secondary to infection. Creatinine peaked at 1.5 to this admission and is 1.2 today. 2. Severe sepsis secondary to Klebsiella bacteremia. Possible source of Broviac catheter. On IV antibiotics. ID following. 3. Hypovolemic hyponatremia improving with IV hydration. 4. Anemia. Rule out iron deficiency. 5. History of Hirschsprung's disease. Has an ileostomy. Plan: Resume normal saline at 75 mL an hour. Replace potassium. Check iron studies. Avoid nephrotoxins. Continue to monitor renal function and urine output. Thank you for the consultation. I will continue to follow patient with you during her hospital stay.
[2022-08-18 13:15] VITALS: BP 101/69; PULSE 78; TEMP 97.6
[2022-08-18 15:30] LABS: ALT 54 U/L (8-44); AST 37 U/L (13-35); Albumin 2.1 g/dL (3.8-4.9); Albumin/Globulin Ratio 1.15 (1.60-3.17); Alkaline Phosphatase 133 U/L (41-126); Bilirubin, Conjugated <0.20 mg/dL (0.20-0.40); Globulin 1.8 g/dL (1.6-3.3); Total Bilirubin <0.15 mg/dL (0.30-1.20); Total Protein 3.9 g/dL (6.2-8.2)
[2022-08-18 15:39] LABS: % Iron Saturation 62.75 (12.00-45.00)
--- NOTE | 2022-08-18 22:42 | P.PN ---
Subjective Progress Note Date: 08/17/22 Principal diagnosis: bacteremia Patient is a 31-year-old female with a past medical history significant for Hirschsprung's disease TPN dependent in this patient who did have a chronic indwelling Broviac catheter present to the hospital with a positive blood culture in the outpatient setting concerning for line infection. On today's evaluation that is 08/17/2022 the patient denies having any fever or chills patient is feeling better breathing comfortably no chest pain shortness of breath or cough no abdominal pain no diarrhea Objective - Vital Signs Vital signs: Vital Signs Temp 97.9 F 08/17/22 11:17 Pulse 75 08/17/22 11:17 Resp 16 08/17/22 11:17 BP 107/74 08/17/22 11:17 Pulse Ox 100 08/17/22 11:17 FiO2 Intake & Output 08/16/22 08/17/22 08/17/22 18:59 06:59 18:59 Intake Total 75 Output Total 2 Balance 75 -2 Weight 53.07 kg Intake: IV 75 Sodium Chloride 0.9% 1, 75 000 ml @ 75 mls/hr IV . [id number] STA Rx#:[id number] Output: Urine 2 - Exam GENERAL DESCRIPTION: Middle-age female lying in bed in no distress RESPIRATORY SYSTEM: Unlabored breathing , decreased breath sounds at bases HEART: S1 S2 regular rate and rhythm , ABDOMEN: Soft , no tenderness EXTREMITIES: No edema feet - Labs CBC & Chem 7: 08/18/22 05:35 08/18/22 05:35 Labs: Abnormal Lab Results - Last 24 Hours (Table) 08/17/22 08/17/22 08/17/22 Range/Units 07:29 07:29 07:29 WBC 10.36 H (4.50-10.00) X 10*3/uL RBC 2.97 L (4.10-5.20) X 10*6/uL Hgb 8.9 L (12.0-15.0) g/dL Hct 26.3 L (37.2-46.3) % Immature Gran # 0.15 H (0.00-0.04) X 10*3/uL Neutrophils # 8.79 H (1.80-7.70) X 10*3/uL Lymphocytes # 0.71 L (0.90-5.00) X 10*3/uL Sodium 132 L (137-145) mmol/L Chloride 92 L (98-107) mmol/L Carbon Dioxide 31 H (22-30) mmol/L BUN 49 H (7-17) mg/dL Creatinine 1.53 H (0.52-1.04) mg/dL Glucose 103 H (74-99) mg/dL Calcium 8.1 L (8.4-10.2) mg/dL AST 46 H (14-36) U/L ALT 56 H (4-34) U/L Alkaline Phosphatase 162 H (38-126) U/L Total Protein 4.5 L (6.3-8.2) g/dL Albumin 2.2 L (3.5-5.0) g/dL Procalcitonin 2.22 H (0.02-0.09) ng/mL Microbiology - Last 24 Hours (Table) 08/16/22 09:58 Blood Culture - Preliminary Blood No Growth after 24 hours 08/16/22 09:42 Urine Culture - Preliminary Urine,Voided Assessment and Plan (1) Bacteremia Status: Acute Code(s): R78.81 - BACTEREMIA SNOMED Code(s): 5744039 Plan: 1patient with a Klebsiella bacteremia with a question of possible Broviac catheter infection in this patient as the current catheter for many years and did have an episode of staph epi bacteremia related to it in January 2022 that was subsequently successfully treated with vancomycin patient is very reluctant to the idea of removal of this catheter. 2patient with cephalosporin allergy that would limit the number of antibiotics safe to use however has tolerated penicillin without any problem. 3blood cultures repeat are currently pending 4patient's hematocrit on clinical improvement and will continue with Unasyn 3 g every 6 hours which can be infused through the port. Time with Patient: Less than 30
--- NOTE | 2022-08-18 22:44 | P.PN ---
Subjective Progress Note Date: 08/18/22 Principal diagnosis: bacteremia Patient is a 31-year-old female with a past medical history significant for Hirschsprung's disease TPN dependent in this patient who did have a chronic indwelling Broviac catheter present to the hospital with a positive blood culture in the outpatient setting concerning for line infection. On today's evaluation that is 08/18/2022 the patient remains to be afebrile, patient is feeling better and insisted on going home the patient is breathing comfortably no chest pain shortness of breath or cough no abdominal pain no diarrhea Objective - Vital Signs Vital signs: Vital Signs Temp 97.8 F 08/18/22 05:00 Pulse 94 08/18/22 05:00 Resp 16 08/18/22 05:00 BP 107/70 08/18/22 05:00 Pulse Ox 100 08/18/22 05:00 FiO2 Intake & Output 08/17/22 08/18/22 08/18/22 18:59 06:59 18:59 Intake Total 1100 590 Balance 1100 590 Intake: Intake, IV Titration 1100 Amount Ampicillin-Sulbactam 3 gm 200 In Sodium Chloride 0.9% 100 ml @ 200 mls/hr IVPB Q6HR HARRY Rx#:[id number] Sodium Chloride 0.9% 1, 900 000 ml @ 75 mls/hr IV . [id number] STA Rx#:[id number] Oral 590 Other: Voiding Method Toilet Toilet Toilet # Voids 3 - Exam GENERAL DESCRIPTION: Middle-age female lying in bed in no distress RESPIRATORY SYSTEM: Unlabored breathing , decreased breath sounds at bases HEART: S1 S2 regular rate and rhythm , ABDOMEN: Soft , no tenderness EXTREMITIES: No edema feet - Labs CBC & Chem 7: 08/18/22 05:35 08/18/22 05:35 Labs: Abnormal Lab Results - Last 24 Hours (Table) 08/18/22 08/18/22 Range/Units 05:35 05:35 WBC 3.98 L (4.50-10.00) X 10*3/uL RBC 2.69 L (4.10-5.20) X 10*6/uL Hgb 8.0 L (12.0-15.0) g/dL Hct 24.5 L (37.2-46.3) % Immature Gran # 0.07 H (0.00-0.04) X 10*3/uL Sodium 133 L (135-145) mmol/L Carbon Dioxide 27.6 H (20.0-27.5) mmol/L Anion Gap 8.90 L (10.00-18.00) mmol/L BUN 43.3 H (9.0-27.0) mg/dL BUN/Creatinine Ratio 37.01 H (12.00-20.00) Ratio Glucose 181 H (70-110) mg/dL Calcium 7.5 L (8.7-10.3) mg/dL Magnesium 3.3 H (1.5-2.4) mg/dL Microbiology - Last 24 Hours (Table) 08/16/22 09:42 Urine Culture - Final Urine,Voided 08/16/22 09:58 Blood Culture - Preliminary Blood No Growth after 24 hours Assessment and Plan (1) Positive blood culture Status: Acute Code(s): R78.81 - BACTEREMIA SNOMED Code(s): 407552268 Plan: 1patient with a Klebsiella bacteremia with a question of possible Broviac catheter infection in this patient as the current catheter for many years and did have an episode of staph epi bacteremia related to it in January 2022 that was subsequently successfully treated with vancomycin patient is very reluctant to the idea of removal of this catheter. 2patient with cephalosporin allergy that would limit the number of antibiotics safe to use however has tolerated penicillin without any problem. 3blood cultures repeat are negative so far 4patient had shown clinical improvement and has been insisting on going home we will switched antibiotic therapy to Invanz 1 g daily with a ten-day course in outpatient setting and close outpatient follow-up Time with Patient: Less than 30
== END 2022-08-18 16:52 | disposition home or self-care (01) | DRG 683 ==
LOC: EC 08:57 → 5NMEDONC 11:35
PROVIDERS: ADMIT Hospitalist; ATTEND Hospitalist
DX: N17.9 Acute kidney failure, unspecified (principal); E87.1 Hypo-osmolality and hyponatremia; N39.0 Urinary tract infection, site not specified; R78.81 Bacteremia; Q43.1 Hirschsprung's disease; B96.1 Klebsiella pneumoniae [K. pneumoniae] as the cause of diseases classified elsewhere; E86.1 Hypovolemia; E86.0 Dehydration; R74.01 Elevation of levels of liver transaminase levels; Z93.2 Ileostomy status; Z88.1 Allergy status to other antibiotic agents; D64.9 Anemia, unspecified; Z91.040 Latex allergy status; Z87.19 Personal history of other diseases of the digestive system
CPT/HCPCS: 36415; 80048; 80053; 80076; 81001; 82330; 82728; 83540; 83550; 83605; 83735; 84100; 84145; 84702; 84703; 85025; 87040; 87086; 96361; 96365; 96366; 99285

== ENCOUNTER → 2022-09-04 | Outpatient (CLI) | payer BC ==
[2022-09-04 16:32] LABS: Amylase 39 U/L (23-121); Lipase 44 U/L (14-63); Prealbumin 13.6 mg/dL (18.0-42.0)
[2022-09-04 16:34] LABS: ALT 18 U/L (8-44); AST 22 U/L (13-35); African American GFR (CKD) 33.4 (60.0-200.0); Albumin/Globulin Ratio 1.34 (1.60-3.17); Alkaline Phosphatase 160 U/L (41-126); BUN/Creat Ratio 21.12 Ratio (12.00-20.00); Bilirubin, Conjugated <0.20 mg/dL (0.20-0.40); Blood Urea Nitrogen 47.1 mg/dL (9.0-27.0); Calcium 8.8 mg/dL (8.7-10.3); Carbon Dioxide 39.2 mmol/L (20.0-27.5); Chloride 78 mmol/L (96-109); Globulin 2.2 g/dL (1.6-3.3); Glucose 138 mg/dL (70-110); Magnesium 2.2 mg/dL (1.5-2.4); Non-African American GFR(CKD) 28.9 (60.0-200.0); Phosphorus 2.1 mg/dL (2.4-5.1); Sodium 126 mmol/L (135-145); Total Protein 5.2 g/dL (6.2-8.2)
[2022-09-04 17:18] LABS: Basophils # (M) 0 X 10*3/uL (0.00-0.10); Eosinophils # (M) 0 X 10*3/uL (0.04-0.35); HCT 25.3 % (37.2-46.3); HGB 8.2 g/dL (12.0-15.0); Lymphocytes # (M) 1.07 X 10*3/uL (0.90-5.00); MCH 29.5 pg (27.0-32.0); MCHC 32.4 g/dL (32.0-37.0); Mean Platelet Volume 11.4 fL (9.5-12.2); Metamyelocytes % 4 % (0-0); Monocytes # (M) 0.33 X 10*3/uL (0.20-1.00); Myelocytes % 2 % (0-0); NRBC Per 100 WBC 0 /100 WBCS (0.0-0.0); Neutrophils # (M) 6.34 X 10*3/uL (2.00-8.90); Neutrophils % (M) 77 %; Platelet Count 215 X 10*3/uL (140-440); RBC 2.78 X 10*6/uL (4.10-5.20); RDW 11.2 % (11.5-14.5); WBC 8.23 X 10*3/uL (4.50-10.00)
== END | disposition home or self-care (01) ==
LOC: LABWHC1 12:05
PROVIDERS: ATTEND Hospitalist
DX: N17.9 Acute kidney failure, unspecified (principal); R78.81 Bacteremia
CPT/HCPCS: 36415; 80048; 80076; 82150; 83690; 83735; 84100; 84134; 84478; 85025; 86140

== ENCOUNTER → 2023-08-31 | Outpatient (CLI) | payer BC ==
[2023-09-01 02:17] LABS: Basophils # (A) 0.04 X 10*3/uL (0.00-0.10); Basophils % (A) 0.6 %; Eosinophils # (A) 0.22 X 10*3/uL (0.04-0.35); Eosinophils % (A) 3.5 %; HCT 40.8 % (37.2-46.3); HGB 13.4 g/dL (12.0-15.0); Lymphocytes # (A) 1.73 X 10*3/uL (0.90-5.00); Lymphocytes % (A) 27.3 %; MCH 30.3 pg (27.0-32.0); MCHC 32.8 g/dL (32.0-37.0); MCV 92.3 FL (80.0-97.0); Mean Platelet Volume 10.9 FL (9.5-12.2); Monocytes # (A) 0.39 X 10*3/uL (0.20-1.00); Monocytes % (A) 6.2 %; NRBC Per 100 WBC 0 X 10*3/uL (0.00-0.01); Neutrophils # (A) 3.93 X 10*3/uL (1.80-7.70); Neutrophils % (A) 62.1 %; Platelet Count 211 X 10*3/uL (140-440); RBC 4.42 X 10*6/uL (4.10-5.20); RDW 12.6 % (11.5-14.5); WBC 6.33 X 10*3/uL (4.50-10.00)
[2023-09-01 02:42] LABS: Prealbumin 18.4 mg/dL (18.0-42.0)
[2023-09-01 02:43] LABS: ALT 82 U/L (8-44); AST 39 U/L (13-35); Albumin 4.2 g/dL (3.8-4.9); Albumin/Globulin Ratio 1.62 Ratio (1.60-3.17); Alkaline Phosphatase 148 U/L (41-126); Amylase 51 U/L (23-121); BUN/Creat Ratio 43.29 Ratio (12.00-20.00); Bilirubin, Conjugated <0.20 mg/dL (0.20-0.40); Bilirubin,Unconjugated >0.40 mg/dL (0.20-1.00); Blood Urea Nitrogen 30.3 mg/dL (9.0-27.0); C Reactive Protein <0.30 mg/dL (0.00-0.80); Carbon Dioxide 25.9 mmol/L (21.6-31.8); Chloride 105 mmol/L (96-109); Globulin 2.6 g/dL (1.6-3.3); Glucose 97 mg/dL (70-110); Lipase 39 U/L (14-63); Magnesium 2.1 mg/dL (1.5-2.4); Phosphorus 3.7 mg/dL (2.4-5.1); Potassium 4.6 mmol/L (3.5-5.5); Sodium 143 mmol/L (135-145); Total Bilirubin 0.6 mg/dL (0.3-1.2); Total Protein 6.8 g/dL (6.2-8.2)
== END | disposition home or self-care (01) ==
LOC: LABWHC1 15:50
PROVIDERS: ATTEND Internal Medicine Gastroenterology
DX: K59.89 Other specified functional intestinal disorders (principal); K63.8219 Small intestinal bacterial overgrowth, unspecified; Z78.9 Other specified health status
CPT/HCPCS: 36415; 80048; 80076; 82150; 82465; 83690; 83735; 84100; 84134; 84478; 85025; 86140

== ENCOUNTER → 2023-12-31 | Outpatient (CLI) | payer BC ==
[2023-12-31 15:44] LABS: Basophils # (A) 0.01 X 10*3/uL (0.00-0.10); Basophils % (A) 0.3 %; Eosinophils # (A) 0.05 X 10*3/uL (0.04-0.35); Eosinophils % (A) 1.7 %; HCT 34.2 % (37.2-46.3); Lymphocytes # (A) 0.63 X 10*3/uL (0.90-5.00); Lymphocytes % (A) 20.9 %; MCH 29.4 pg (27.0-32.0); MCHC 32.2 g/dL (32.0-37.0); MCV 91.4 FL (80.0-97.0); Mean Platelet Volume 11.2 FL (9.5-12.2); Monocytes # (A) 0.39 X 10*3/uL (0.20-1.00); NRBC Per 100 WBC 0 X 10*3/uL (0.00-0.01); Neutrophils # (A) 1.92 X 10*3/uL (1.80-7.70); Neutrophils % (A) 63.8 %; Platelet Count 144 X 10*3/uL (140-440); RBC 3.74 X 10*6/uL (4.10-5.20); RDW 12.3 % (11.5-14.5); WBC 3.01 X 10*3/uL (4.50-10.00)
[2023-12-31 15:57] LABS: ALT 136 U/L (8-44); AST 54 U/L (13-35); Albumin 3.6 g/dL (3.8-4.9); Albumin/Globulin Ratio 1.57 Ratio (1.60-3.17); Alkaline Phosphatase 197 U/L (41-126); Blood Urea Nitrogen 24.3 mg/dL (9.0-27.0); Calcium 8.6 mg/dL (8.7-10.3); Carbon Dioxide 22.5 mmol/L (21.6-31.8); Chloride 105 mmol/L (96-109); Chol/HDL Ratio 3.87 Ratio; Globulin 2.3 g/dL (1.6-3.3); Glucose 115 mg/dL (70-110); LDL Cholesterol,Calculated 54.6 mg/dL (0.0-131.0); Sodium 138 mmol/L (135-145); Total Bilirubin 0.4 mg/dL (0.3-1.2); Total Protein 5.9 g/dL (6.2-8.2); VLDL Calculation 18.82 mg/dL (5.00-40.00)
[2023-12-31 16:24] LABS: Erythrocyte Sedimentation Rate 13 mm/Hr (0-20)
== END | disposition home or self-care (01) ==
LOC: LABWHC1 10:52
PROVIDERS: ATTEND Family Medicine
DX: R50.9 Fever, unspecified (principal)
CPT/HCPCS: 36415; 80053; 80061; 85025; 85652; 86140